=== PATIENT | male | born 1950 | race Caucasian/White ===

== ENCOUNTER 2018-07-12 10:37 | Outpatient (CLI) | payer OTHER, SELFPAY ==
[2018-07-12 11:28] LABS: Abs Immature Grans 0.02 k/cumm (0.0-0.09); Absolute Basophil Count 0.04 k/cumm (0.0-0.2); Absolute Eosinophil Count 0.27 k/cumm (0.0-0.7); Absolute Lymphocyte Count 1.29 k/cumm (1.2-3.4); Absolute Monocyte Count 0.55 k/cumm (0.11-0.7); Absolute Neutrophil Count 3.16 k/cumm (1.2-6.7); Basophils % 0.8; Eosinophils % 5.1; HCT 49.9 % (40.0-50.0); HGB 16.6 g/dL (13.5-17.5); Immature Grans % 0.4; Lymphocytes % 24.2; Mean Corp. HGB Concentration 33.3 g/dL (32.0-36.0); Mean Corpuscular Hemoglobin 30.3 pg (27.0-33.0); Mean Corpuscular Volume 91.1 fL (80-95); Mean Platelet Volume 10.1 fL (8.0-11.0); Monocytes % 10.3; Neutrophils % 59.2; Platelet Count 205 x1000/uL (130-400); RBC 5.48 m/cumm (4.50-6.00); RBC Distribution Width 13.4 % (11.8-14.1); White Blood Cell Count 5.33 k/cumm (4.4-10.8)
[2018-07-12 12:24] LABS: ALT 26 U/L (12-78); AST 20 U/L (15-37); Albumin 3.9 g/dL (3.4-5.0); Alkaline Phosphatase 68 U/L (46-116); Anion Gap 7.1 mmol/L (3-11); BUN 23 mg/dL (7-18); Bilirubin, Total 0.7 mg/dL (0.2-1.0); CO2 30.9 mmol/L (21.0-32.0); CREATININE 0.99 mg/dL (0.70-1.30); Calcium 9.1 mg/dL (8.5-10.1); Chloride 104 mmol/L (98-107); Glucose 103 mg/dL (70-100); Potassium 4.3 mmol/L (3.5-5.1); Sodium 142 mmol/L (136-145); TSH (W/Ref FT4) 2.11 uIU/mL (0.358-3.74); Total Protein 7.6 g/dL (6.4-8.2)
[2018-07-12 12:47] LABS: Lipase 243 U/L (73-393)
[2018-07-13 10:37] LABS: Hepatitis C Ab w Rflx HCV PCR Negative (NEGAT)
== END 2018-07-12 10:57 ==
PROVIDERS: PCP Family Medicine; Visit Provider Family Medicine
DX: R10.9 Unspecified abdominal pain (principal); R53.83 Other fatigue; Z11.59 Encounter for screening for other viral diseases
CPT/HCPCS: 36415; 80053; 83690; 86803; 84443; 85025

== ENCOUNTER 2018-07-18 01:11 | Outpatient (CLI) | payer OTHER, SELFPAY ==
--- NOTE | 2018-07-18 07:20 | DI.US_ITS ---
SYMPTOM/DIAGNOSIS: RUQ PAIN WITH NAUSEA, R10.9 ABDOMEN ULTRASOUND: The aorta and vena cava are intact. The liver is intact and is not enlarged. The gallbladder is normal. There are no gallstones or ductal dilatation. There is only limited visualization of the pancreas. The spleen is top limits of normal in size to mildly enlarged at 10.5 cm. The kidneys are unremarkable. The right kidney measures 10.1 by 5.5 by 5.4 cm., the left kidney measures 10.2 by 5.5 by 5.8 cm. There is no evidence of abdominal free fluid. SUMMARY: The liver is not enlarged, however there is some increased echogenicity suggesting the possibility of fatty infiltration. The examination is otherwise unremarkable with note made of non visualization of the pancreas.
== END 2018-07-18 01:31 ==
PROVIDERS: PCP Family Medicine; Visit Provider Family Medicine
DX: R10.11 Right upper quadrant pain (principal); R11.0 Nausea; K76.0 Fatty (change of) liver, not elsewhere classified
CPT/HCPCS: 76700

== ENCOUNTER 2019-07-17 11:30 | Outpatient (CLI) | payer OTHER, SELFPAY ==
[2019-07-18 15:45] LABS: ANA Interpretation Negative (Negative)
[2019-07-19 15:03] LABS: Smooth Muscle Ab Screen Negative (Negative)
== END 2019-07-17 11:50 ==
PROVIDERS: PCP Family Medicine; Visit Provider Family Medicine
DX: K76.0 Fatty (change of) liver, not elsewhere classified (principal)
CPT/HCPCS: 36415; 86038; 86255

== ENCOUNTER 2020-08-08 15:57 | Emergency (ER) | payer OTHER, SELFPAY ==
--- NOTE | 2020-08-08 16:00 | DI.RAD_ITS ---
EXAM: XR LUMBAR SPINE COMPLETE CLINICAL HISTORY: Left side sciatica pain. TECHNIQUE: 2D digital imaging was performed. COMPARISON: No exams were available for comparison FINDINGS: BONES: No fracture or destructive lesion. Vertebral bodies are maintained in height.. Moderate facet hypertrophy identified. DISKS: Endplate osteophytes and mild disc space narrowing. ALIGNMENT: Lumbar spinal alignment is within normal limits. SOFT TISSUE: Mild aortic calcification. IMPRESSION: Degenerative changes. No acute abnormality. DATA REPOSITORY: RADIATION DOSE DELIVERED:
[2020-08-08 16:03] VITALS: BP 146/95; PULSE 104; RESP 16; TEMP 36.4; O2SAT 95
--- NOTE | 2020-08-08 16:16 | ED.GENADUL_ITS ---
Discharge Plan Disposition Patient Disposition: HOME Condition: Stable Discharge Details Clinical Impression: Lumbago with sciatica, left side Primary Care Provider: Shiv Aceves ED Provider: Harper Boone Home Meds and New Rx's Prescriptions: New gabapentin 300 mg capsule 300 mg PO QHS PRN (Reason: pain, moderate) Qty: 10 RF: 0 lidocaine 5 % adhesive patch,medicated 1 patch topical DAILY PRN (Reason: pain) Qty: 15 RF: 0 Continued methylprednisolone [Medrol (Anshul)] 4 mg tablets,dose pack See Rx Instructions PO PER PKG DIR Qty: 21 RF: 0 cyclobenzaprine 10 mg tablet 10 mg PO HS PRN (Reason: muscle spasm) Qty: 10 RF: 0 esomeprazole magnesium [Nexium] 40 MG capsule,delayed release(DR/EC) 40 mg PO every other day RF: 0 Motrin PM 1 EACH tablet 2 ea PO HS RF: 0 Discharge Instructions Instructions: Sciatica (ED), Lower Back Exercises (ED) Additional Instructions: Follow up with primary care provider in 3-5 days. Return to ED sooner if any worsening or concerns. Increase oral fluids. Please take Tylenol or Ibuprofen with food every 4-6 hours as needed for pain and swelling. Take medications as directed. A physical therapy referral was placed for you they should contact you for an appointment. Alternate ice and heat. Attempt exercises as noted in instructions. Please return to the ED for any loss of bowel or bladder control, any numbness around your groin or rectum, inability to urinate or have a bowel movement, fever vomiting, or any worsening or concerns. Stand Alone Forms: Physical Therapy Referral Referrals: Shiv Aceves DO [Primary Care Provider] - Medical Decision Making male presents to the ED with chief complaint of left lower lumbar pain with r adiation into left anterior thigh down to knee. 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 He has been seen x 2 and is on prednisone and Flexeril which he took prior to arrival. He denies any loss of bowel or bladder control, no saddle anesthesia, no problems urinating, or constipation. He has a past medical history of diverticulosis. X-ray lumbar spine ordered, urinalysis, will give patient 5 mg Valium p.o. and 50 mg of tramadol. XR of the lumbosacral spine, 4 or 5 views. COMPARISON: No relevant prior studies available. FINDINGS: Bones/joints: Mild multilevel spondylosis. No acute fracture. Normal alignment. Soft tissues: Unremarkable. IMPRESSION: No evidence for acute abnormality. 1731: Patient reevaluation, he has received Valium and tramadol he states that he is still having some pain. Discussed the x-ray results with patient who verbalized understanding. At this time urinalysis is pending, due to absence of symptoms I do feel it is appropriate to discharge patient before receiving urinalysis. Patient was given lidocaine patch, gabapentin 300 mg instructed to take at bedtime, was given Percocet prior to discharge. 2136: Reviewed urinalysis results shows trace leukocytes, 10-20 WBCs, no nitrites, culture is pending at this time. HPI General Mode of arrival: wheelchair . Date/Time Provider Initiated Documentation: 08/08/20 16:08 . Limitations to Documentation: no limitations . Information obtained by: patient . HPI Narrative: 70 year old male presents to the ED with chief complaint of left lower lumbar pain with radiation into left anterior thigh down to knee. 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 He has been seen x 2 and is on prednisone and Flexeril which he took prior to arrival. He denies any loss of bowel or bladder control, no saddle anesthesia, no problems urinating, or constipation. He has a past medical history of diverticulosis. Related Data Home Medications Medication Instructions Recorded Confirmed Motrin PM 2 ea PO HS 02/12/18 08/08/20 esomeprazole magnesium [Nexium] 40 mg PO every other day 02/12/18 08/08/20 cyclobenzaprine 10 mg tablet 10 mg PO HS PRN #10 tab 08/05/20 08/08/20 methylprednisolone 4 mg tablets in See Rx Instructions PO PER PKG DIR 08/05/20 08/08/20 a dose pack #21 dose pk gabapentin 300 mg PO QHS PRN #10 cap 08/08/20 lidocaine 1 patch TOPICAL DAILY PRN #15 ea 08/08/20 Previous Rx's Medication Instructions Recorded cyclobenzaprine 10 mg tablet 10 mg PO HS PRN #10 tab 08/05/20 methylprednisolone 4 mg tablets in See Rx Instructions PO PER PKG DIR 08/05/20 a dose pack #21 dose pk gabapentin 300 mg PO QHS PRN #10 cap 08/08/20 lidocaine 1 patch TOPICAL DAILY PRN #15 ea 08/08/20 Allergies Allergy/AdvReac Type Severity Reaction Status Date / Time cat dander Allergy Unknown unknown Verified 08/08/20 16:07 mold Allergy Verified 08/08/20 16:07 No Known Drug Allergies Allergy Verified 08/08/20 16:07 General Stated Complaint: Nk/Back Pain MERLE: 3 Review of Systems Narrative: Constitutional: Negative for weight loss, alert and oriented, well groomed, normal body habitus, appears comfortable. HEENT: Denies trauma, headaches, blurry vision, nasal discharge, sore throat, trouble swallowing. Chest: Denies chest pain, palpitations, irregular rhythm, hypertension. Respiratory: Denies Shortness of breath, cough, hemoptysis. GI: Denies abdominal pain, nausea, vomiting, diarrhea, constipation. : Denies dysuria, hematuria, flank pain, rectal bleeding. Musculoskeletal: Planing of left lower lumbar tenderness with radiation down into his left anterior thigh and knee. Neuro: Denies dizziness, blurry vision, weakness, syncope, headache or facial numbness. Hematologic: Denies easy bruising, intolerance to heat or cold, hair loss. [facility] Medical History Sigmoid diverticulosis (01/30/18) Surgical History cyst removal Family History Mother No problems noted. Father No problems noted. Brother Alcohol abuse Brother No problems noted. Brother No problems noted. Brother No problems noted. Son No problems noted. Son No problems noted. Daughter No problems noted. 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 Appears stated age. Normal body habitus. Head: Normocephalic, no trauma. Eyes: Pupils PERRLA, Red reflex noted, EOM's intact. Eyelids symmetrical without lesions, discharge, or swelling. ENT: Bilateral TM's WNL, External ear normal to inspection, no mastoid TTP, swelling, or erythema, Nasal turbinates WNL, no nasal discharge. Normal dentition, Posterior pharynx WNL, no exudate. Chest: RRR, Normal S1, S2, distal pulses intact. Resp: Lungs clear to auscultation bilaterally, no wheezes, rales, or rhonchi. Musculoskeletal: 5/5 strength to all four extremities. Skin: No suspicious rashes or lesions. Capillary refill less than 2 sec. Neurologic: Cranial nerves II-XII intact. Alert and oriented x 3. DTR's intact. Hematologic/Lymphatic: No ecchymosis, no lymphadenopathy. Course Vital Signs Vital signs: Vital Signs Temperature 36.4 C L 08/08/20 16:03 Pulse 104 H 08/08/20 16:03 Respiratory Rate 16 08/08/20 16:03 Blood Pressure 146/95 H 08/08/20 16:03 Pulse Oximetry 95 08/08/20 16:03 Temperature 36.4 C L 08/08/20 16:03 Temperature Source Skin 08/08/20 16:03 Pulse 104 H 08/08/20 16:03 Respiratory Rate 16 08/08/20 16:03 Respiratory Effort Non-Labored 08/08/20 16:03 Blood Pressure 146/95 H 08/08/20 16:03 Blood Pressure Position Sitting 08/08/20 16:03 Pulse Oximetry 95 08/08/20 16:03 Oxygen Delivery Method Room Air 08/08/20 16:03 Oxygen Flow Rate 0 08/08/20 16:03 Pain Level 9 08/08/20 16:03
[2020-08-08] MEDS: diazePAM 5 MG TAB PO (16:22)
[2020-08-08] MEDS: traMADol 50 MG TAB PO (16:22)
--- NOTE | 2020-08-08 16:39 | DI.VRAD_ITS ---
PROCEDURE INFORMATION: Exam: XR Lumbosacral Spine, 4 or 5 Views Exam date and time: 08/08/2020 4:16 PM Age: 70 years old Clinical indication: Pain; Sciatica TECHNIQUE: Imaging protocol: XR of the lumbosacral spine, 4 or 5 views. COMPARISON: No relevant prior studies available. FINDINGS: Bones/joints: Mild multilevel spondylosis. No acute fracture. Normal alignment. Soft tissues: Unremarkable. IMPRESSION: No evidence for acute abnormality. Dictated and Authenticated by: Leslie Cyone MD. Ordering:LEAH Saleem MD
[2020-08-08] MEDS: Lidocaine 5% Patch 1 PATCH TP (17:43)
[2020-08-08] MEDS: Gabapentin 300 MG CAP PO (17:43)
[2020-08-08 18:21] VITALS: BP 154/94; PULSE 104; RESP 20; O2SAT 100
[2020-08-08 18:23] LABS: Bilirubin Negative (Negative); Blood Negative (Negative); Clarity Cloudy (Clear); Glucose Negative (Negative); Ketones Negative (Negative); Leukocyte Esterase Trace (Negative); Nitrite Negative (Negative); Specific Gravity 1.025 (1.005-1.025); Urobilinogen 0.2 EU/dL (Up TO 0.2); pH 6.5 (5-8)
[2020-08-08 18:32] LABS: Bacteria Many HPF (Negative); C & S Indicated? Yes; Casts Negative LPF (Negative); Crystals Negative HPF (Negative); Epithelial Cells Rare HPF (Negative); Mucus Negative (Negative); RBC 0-2 HPF (0-2)
[2020-08-08] MEDS: oxyCODONE 5 mg/Acetaminophen 325 mg TAB 1 TAB PO ×2 (18:32→18:33)
== END 2020-08-08 18:40 | disposition home or self-care (01) ==
PROVIDERS: Emergency Provider Registered Nurse Emergency; PCP Family Medicine
DX: M54.42 Lumbago with sciatica, left side (principal); M62.830 Muscle spasm of back
CPT/HCPCS: 87077; 99283; 72110; 81003; 81015; 87086; 87186

== ENCOUNTER 2020-08-27 01:27 | Outpatient (CLI) | payer OTHER, SELFPAY ==
--- NOTE | 2020-08-27 06:45 | DI.MRI_ITS ---
EXAM: MR LUMBAR SPINE WO CLINICAL HISTORY: Suspect L3-4 disc bulge,LUMBAR BACK PAIN WITH RADICULOPATHY,M54.16. TECHNIQUE: Multiplanar multisequence MRI of the Lumbar spine was performed. COMPARISON: CR,XR XR LUMBAR SPINE COMPLETE from 08/08/2020 FINDINGS: Plain films 08/08/2020 reviewed Conus medullaris is at normal level. There is no evidence of conus mass nor subjacent clumping of in trathecal nerve roots to suggest arachnoiditis. The distal thecal sac appears unremarkable.There is no evidence of Tarlov intrasacral cysts nor other significant findings within the sacral canal Bones:There are no fractures nor ominous osseous lesions in the lumbar vertebral bodies and visualize d sacrum. With respect to the individual levels... T12-L1: Unremarkable L1-2: Mild decreased disc height and signal. There are anterior osteophytes.Posteriorly there is bro ad annular bulging without a dominant disc herniation although the annular bulging does extend apprec iably into the exiting left neural foramen. However, the absence of significant disc height loss steward s not result in significant foraminal stenosis. There is no central canal stenosis. There is also n o significant facet arthropathy at this level. L2-3: Normal disc height. There is broad annular bulging with a superimposed central-left paracentral disc protrusion which extends posteriorly 3-4 millimeters and is 9 millimeters wide. This indents t he anterior left side of the thecal sac. Also annular bulging extends into the exiting left neural f oramen at this level contacting the exiting nerve root with mild left-sided foraminal stenosis. Ther e is no foraminal stenosis on the opposite-right side. Osseous central canal dimensions are lower no rmal. There is no significant facet arthropathy. L3-4: Preserved disc height . There is broad annular bulging at this level with relatively symmetric al extension into the exiting neural foramina bilaterally and even more so laterally on the right kendrick e where there is a element of lateral disc protrusion. There is mild central canal stenosis due to t he broad annular bulging which flattens the anterior aspect of the thecal sac, short AP dimensions th e pedicles. There is no prominent facet arthropathy nor ligamentum flavum hypertrophy.Although the a nnulus bulges into the exiting neural foramina bilaterally, there is minimal foraminal stenosis. L4-5: Preserved disc height. There is broad annular bulging with a superimposed central subligamento us disc protrusion which flattens the anterior aspect of the thecal sac. There is also some resultin g mild-moderate central spinal canal stenosis due to this annular bulging and disc protrusion. There is no prominent extension of the annular bulging into the exiting neural foramina with out significa nt foraminal stenosis on either side at this level. Mild degenerative changes in the facet joints. No prominent ligamentum flavum hypertrophy. L5-S1: Preserved disc height. Diffuse annular bulging, but without flattening of the thecal sac at t his level. Central canal dimensions are lower normal. Some extension of annular bulging into the fl oor of the exiting left neural foramen but without prominent foraminal stenosis on either side at thi s level. Mild degenerative facet joint changes. Soft tissues: paraspinal soft tissues appear unremarkable. IMPRESSION: 1. Although there is relatively preserved disc height throughout the lumbosacral spine, there are mul tilevel disc findings at each level as described individually above, including annular bulging and broussard perimposed disc protrusions as described individually above. At the L4-5 level there is mild-moderat e central canal stenosis and there is mild central canal stenosis at L3-4 level. 2. Although there is annular bulging extending into the exiting neural foramina at multiple levels, t here is no prominent foraminal stenosis. This lack of prominent foraminal stenosis is due to disc he ight preservation and absence of prominent degenerative facet joint changes. 3. No osseous lesions evident. DATA REPOSITORY:
== END 2020-08-27 01:47 ==
PROVIDERS: PCP Family Medicine; Visit Provider Family Medicine
DX: M48.061 Spinal stenosis, lumbar region without neurogenic claudication (principal); M54.16 Radiculopathy, lumbar region
CPT/HCPCS: 72148

== ENCOUNTER 2020-12-22 14:59 | Observation (INO) | payer OTHER, SELFPAY ==
[2020-12-22] VITALS (37 sets, daily range): BP systolic 78–154; BP diastolic 42–97; PULSE 106–156; RESP 11–27; TEMP 36.4–37.4; O2SAT 86–97; BMI 26.4
[2020-12-22] MEDS: Normal Saline Flush 10 ML SYR IVP ×2 (15:10→20:09)
--- NOTE | 2020-12-22 15:12 | DI.CT_ITS ---
Exam(s) CT ABDOMEN PELVIS W EXAM: CT ABDOMEN PELVIS W CLINICAL HISTORY: Hx Divertic. Pain RLQ, nausea. IV, no PO. TECHNIQUE: Imaging Protocol: Axial computed tomography images with coronal and sagittal reformatted images were created and reviewed CONTRAST MATERIAL: Intravenous: Omnipaque 100cc Oral: None COMPARISON: No exams were available for comparison FINDINGS: VISUALIZED LUNG BASES: Increased dependent markings both lung bases. No pleural effusions. ABDOMEN: There is no ascites. LIVER: There are no focal hepatic lesions evident . GALLBLADDER/BILIARY: No obvious gallbladder pathology. CBD is not dilated. PANCREAS: No evidence of pancreatic mass nor dilatation of the pancreatic duct. SPLEEN: Spleen is not enlarged. No obvious intrasplenic lesions. Splenic and portal veins are paten t. ADRENALS: There are no significant adrenal masses. KIDNEYS:No cysts evident. No solid renal masses. No calculi nor hydronephrosis.. ABDOMINAL AORTA: Mild prominence of the diameter of the inferior abdominal aorta and proximal left co mmon iliac artery. LYMPH NODES:There is no retroperitineal nor paraaortic adenopathy. ABDOMINAL WALL: No evidence of significant anterior abdominal wall hernia. PELVIS: GI: The appendix is abnormal. It is swollen to diameter of 12 millimeters and edematous and with ean rounding streaking in the mesoappendix. Consistent with acute appendicitis. No abscess. No free ai r.There is extensive sigmoid diverticulosis without evidence of acute diverticulitis. LYMPH NODES: Slightly enlarged lymph nodes in the mesoappendix noted. No other adenopathy evident. REPRODUCTIVE: Prostate slightly enlarged. URINARY BLADDER: No calculi nor obvious masses evident OSSEOUS: No significant osseous lesions. IMPRESSION: 1. Findings are consistent with acute appendicitis, as described above. 2. There is sigmoid diverticulosis but no evidence of acute diverticulitis. Findings called by myself to and [facility] emergency room physician RADIATION DOSE DELIVERED: 781.18mGy.cm Total DLP DATA REPOSITORY: All CT scans at this facility are submitted to the National Radiology Data Registry (NRDR) Dose Index Registry (DIR) with the [employer] (ACR). RADIATION OPTIMIZATION: All CT scans at this facility use at least one of these dose optimization te chniques: automated exposure control; mA and/or kV adjustment per patient size (includes targeted exa ms where dose is matched to clinical indication); or iterative reconstruction.
--- NOTE | 2020-12-22 15:15 | RT.EKG_ITS ---
APPROVED REPORT Exam: Resting ECG Reason for Exam: abd pain Patient Location: E HR:125 bpm ECG Measurements Heart Rate 125 AXIS AK 127 P 21 QRSd 139 QRS -142 QT 335 T 50 QTc 484 Conclusion Sinus tachycardia...rate> 99 Right bundle branch block.. Nonspecific st changes
--- NOTE | 2020-12-22 15:19 | W.ED.GENAD ---
Discharge Plan Disposition Patient Disposition: [facility] INPATIENT Condition: Stable Discharge Details Chief Complaint: Abd Prob Clinical Impression: Acute appendicitis Primary Care Provider: Shiv Aceves ED Provider: Amos Yung Home Meds and New Rx's Prescriptions: No Action oxycodone-acetaminophen [Percocet] 5-325 mg tablet 1 tab PO QHS MDD 5 mg oxycodone PRN (Reason: pain) Qty: 14 RF: 0 gabapentin 600 mg tablet 600 mg PO TID Qty: 270 RF: 3 meloxicam 15 mg tablet 15 mg PO DAILY PRN (Reason: pain) 30 Days Qty: 30 RF: 5 esomeprazole magnesium [Nexium] 40 MG capsule,delayed release(DR/EC) 40 mg PO every other day RF: 0 Motrin PM 1 EACH tablet 2 ea PO HS RF: 0 lidocaine 5 % adhesive patch,medicated 1 patch topical DAILY PRN (Reason: pain) Qty: 15 RF: 0 Medical Decision Making This is a 70-year-old male who presents with hours of right lower quadrant abdominal pain was insidious in onset, now constant. Associated with nausea, decreased appetite and a mild headache. No vomiting or chest pain. States she has had 1 out of 2 Covid vaccinations. Has a history of gallstones, no significant abdominal surgeries. He was initially seen at local urgent care and referred expeditiously to the emergency department. Arrives with a pulse of 128, new shaking chills. Temp is 37.4, blood pressure 154/89. He is tender in the right lower quadrant. He has a history of diverticulitis. Differential diagnosis would include appendicitis, diverticulitis, cholecystitis. As the patient had tachycardia and a rigor on presentation, blood cultures were obtained and I ordered Zosyn empirically to cover for developing peritonitis. Screening EKG, laboratories, urinalysis obtained patient referred for CT images. Labs will note a left shift to white blood cell count of 8. Slightly elevated lactic acid. Negative troponin. CT with evidence of acute appendicitis. Formal read is pending. Case discussed with Dr. Disla and patient to be admitted. HPI General Mode of arrival: ambulatory. Date/Time Provider Initiated Documentation: 12/22/20 15:02. Limitations to Documentation: no limitations. Information obtained by: patient. History of Present Illness 70 year old M presents to the emergency department with the chief complaint of Right lower abdominal pain since 4 AM, described as moderate, Quality is described as dull and constant, and is localized to the abdomen and right. Patient abdomen. Patient started experiencing this hour(s) and it has been constant. Rest improves symptom(s), Movement worsens symptoms . Patient notes fever/chills, headaches, loss of appetite and other (Nauseated); denies chest pain, shortness of breath and syncope. Patient did receive the following treatments prior to arrival, other (Reports 1 of 2 COVID-19 vaccines) Related Data Home Medications Medication Instructions Recorded Confirmed Motrin PM 2 ea PO HS 02/12/18 12/22/20 esomeprazole magnesium [Nexium] 40 mg PO every other day 02/12/18 12/22/20 lidocaine 1 patch TOPICAL DAILY PRN #15 ea 08/08/20 12/22/20 gabapentin 600 mg tablet 600 mg PO TID #270 tab 09/01/20 12/22/20 oxycodone-acetaminophen 5 mg-325 1 tab PO QHS PRN #14 tab MDD 5 mg 09/01/20 12/22/20 mg tablet oxycodone meloxicam 15 mg tablet 15 mg PO DAILY PRN 30 Days #30 tab 09/22/20 12/22/20 Previous Rx's Medication Instructions Recorded lidocaine 1 patch TOPICAL DAILY PRN #15 ea 08/08/20 gabapentin 600 mg tablet 600 mg PO TID #270 tab 09/01/20 oxycodone-acetaminophen 5 mg-325 1 tab PO QHS PRN #14 tab MDD 5 mg 09/01/20 mg tablet oxycodone meloxicam 15 mg tablet 15 mg PO DAILY PRN 30 Days #30 tab 09/22/20 Allergies Allergy/AdvReac Type Severity Reaction Status Date / Time cat dander Allergy Unknown unknown Verified 12/22/20 15:11 mold Allergy Verified 12/22/20 15:11 No Known Drug Allergies Allergy Verified 12/22/20 15:11 General Stated Complaint: Abd Prob MERLE: 2 Review of Systems Narrative: Shaking chill, nauseated, no vomiting, denies chest pain or shortness of breath. No recent illness. Last bowel movement yesterday. 8 systems reviewed and otherwise negative. See [facility] Medical History (Updated 12/22/20 @ 17:23 by Amos Yung MD) Hepatic steatosis Lumbar back pain with radiculopathy affecting left lower extremity Sigmoid diverticulosis (01/30/18) Surgical History cyst removal Family History Mother No problems noted. Father No problems noted. Brother Alcohol abuse Brother No problems noted. Brother No problems noted. Brother No problems noted. Son No problems noted. Son No problems noted. Daughter No problems noted. 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 Pleasant, well groomed, interactive. HEAD: Normocephalic, atraumatic ENT: Mucous membranes moist, oropharynx unremarkable, External ear exam unremarkable EYES: PERRL, EOMI NECK: Full ROM, no KACY, no menigismus CHEST/RESP: Nontender, clear to auscultation bilateral, no wheeze/rhonchi/rales CARDIOVASCULAR: Regular and tachycardic, no murmur, rub dave. 2+ Rad pulse bilateral ABDOMEN: Soft, tender right lower quadrant, mild rebound, diminished bowel sounds, no mass. EXT: Full ROM, no edema, no rash Neuro: Grossly normal neurologic exam, conversant, interactive. Psych: Speech fluent, thoughts congruent, affect normal Course Vital Signs Vital signs: Vital Signs Temperature 37.4 C 12/22/20 15:05 Pulse 128 H 12/22/20 15:05 Respiratory Rate 20 12/22/20 15:05 Blood Pressure 154/89 H 12/22/20 15:05 Pulse Oximetry 94 12/22/20 15:05 Temperature 37.4 C 12/22/20 15:05 Temperature Source Oral 12/22/20 15:05 Pulse 128 H 12/22/20 15:05 Respiratory Rate 20 12/22/20 15:05 Respiratory Effort Non-Labored 12/22/20 15:10 Blood Pressure 154/89 H 12/22/20 15:05 Blood Pressure Position Supine 12/22/20 15:05 Pulse Oximetry 94 12/22/20 15:05 Oxygen Delivery Method Room Air 12/22/20 15:05 Oxygen Flow Rate 0 12/22/20 15:05 Pain Level 8 12/22/20 15:05
[2020-12-22] MEDS: Normal Saline 1,000 ML 1000 ML IV ×2 (15:25→16:35)
[2020-12-22] MEDS: Ondansetron 4 MG/2 ML VIAL IVP (15:25)
[2020-12-22] MEDS: HYDROmorphone 2 MG/ML VIAL 1 MG IVP (15:30)
[2020-12-22 15:32] LABS: Abs Immature Grans 0.02 10^3/uL (0.0-0.06); Absolute Basophil Count 0.05 10^3/uL (0.0-0.2); Absolute Eosinophil Count 0.03 10^3/uL (0.0-0.7); Absolute Lymphocyte Count 0.24 10^3/uL (1.2-3.4); Absolute Monocyte Count 0.05 10^3/uL (0.1-0.8); Absolute Neutrophil Count 7.73 10^3/uL (1.2-6.7); Basophils % 0.6; Eosinophils % 0.4; HCT 50.7 % (40.0-50.0); HGB 17.5 g/dL (13.5-17.5); Immature Grans % 0.2; MCH 30.8 pg (27.0-33.0); MCHC 34.5 % (32.0-36.0); MCV 89.1 fL (80-95); MPV 9.9 fL (8.0-11.0); Monocytes % 0.6; Neutrophils % 95.2; Nucleated RBC 0 %; Platelet Count 159 10^3/uL (130-400); RBC 5.69 10^6/uL (4.36-5.78); RDW 11.9 % (11.8-14.1); RDW-SD 38.8 fL; WBC 8.12 10^3/uL (4.4-10.8)
[2020-12-22] MEDS: PIPERACILLIN/TAZO 3.375 GM in Normal Saline 50 ML IVPB (15:35)
[2020-12-22 15:37] LABS: Lactate 2.3 mmol/L (0.6-1.4)
[2020-12-22 15:50] LABS: ALT 24 U/L (16-63); AST 16 U/L (15-37); Albumin 4.3 g/dL (3.4-5.0); Alkaline Phosphatase 86 U/L (46-116); Anion Gap 12.6 mmol/L (3-11); BUN 23 mg/dL (7-18); Bilirubin, Total 1.1 mg/dL (0.2-1.0); CO2 25.4 mmol/L (21.0-32.0); Calcium 9.1 mg/dL (8.5-10.1); Chloride 103 mmol/L (98-107); Glucose 142 mg/dL (74-106); Lipase 69 U/L (73-393); Magnesium 1.4 mg/dL (1.8-2.4); Potassium 3.7 mmol/L (3.5-5.1); Sodium 141 mmol/L (136-145)
[2020-12-22 15:54] LABS: Troponin I < 0.05 ng/mL (<0.06)
[2020-12-22] MEDS: Omnipaque 350 MG/ML 100 ML BTL IJ (16:01)
[2020-12-22] MEDS: Normal Saline - Diluent 50 ML VIAL IV (16:02)
--- NOTE | 2020-12-22 16:45 | HPE_ITS ---
Date of service: 12/22/20 Time of Service: 16:45 Assessment and Plan Assessment and plan (1) Acute appendicitis: Status: Acute Assessment and plan: Mr. Russo is a pleasant 70 year old male who comes in to the ER with abdominal pain since 4 am this morning. It is localized to the RLQ. He doesn't have rebound tenderness. His WBC count is normal but he does have a slight left shift. CT scan reveals a dilated appendix. No fat stranding. Qualifiers: Acute appendicitis type: with localized peritonitis Appendicitis abscess presence: without abscess Appendicitis gangrene presence: without gangrene Appendicitis perforation presence: without perforation Qualified Code(s): K35.30 - Acute appendicitis with localized peritonitis, without perforation or gangrene History of Present Illness History of Present Illness Chief Complaint: RLQ abdominal pain Consults Consult date: 12/22/20 Requesting physician: Amos Yung Narrative: Mr. Russo is a 70-year-old male who presented with right lower quadrant abdominal pain since 4 am. The pain was insidious in onset, now constant.? Associated with nausea, decreased appetite and a mild headache.? No vomiting or chest pain.? States he has had 1 out of 2 Covid vaccinations.? Has a history of gallstones, no significant abdominal surgeries.? Arrived with a pulse of 128 and shaking chills.? Temp was 37.4, blood pressure 154/89.? He was given 2 L of Fluid and labs were drawn. Labs show a normal WBC count but he does have a left shift. CT scan was obtained which shows a dilated appendix. I can't appreciate any fat stranding. There is no official read yet. Review of Systems Constitutional Constitutional: Reports anorexia, Denies fever(s), Reports headache(s) and Denies weight loss Eyes Eyes: Denies change in vision ENT Ears, Nose, Mouth, and Throat: Denies dysphagia, Reports headache(s) and Denies hoarseness Cardiovascular Cardiovascular: Denies chest pain, Denies palpitations and Denies dyspnea Respiratory Respiratory: Denies cough and Denies dyspnea Gastrointestinal Gastrointestinal: Reports as per HPI and Denies dysphagia Genitourinary Genitourinary: Reports system reviewed and no additional complaints, except as documented Musculoskeletal Musculoskeletal: Reports system reviewed and no additional complaints, except as documented Integumentary/Breasts Skin/Breast: Reports system reviewed and no additional complaints, except as documented Neurologic Neurologic: Reports system reviewed and no additional complaints, except as documented and Reports headache(s) Psychiatric Psychiatric: Reports system reviewed and no additional complaints, except as documented Endocrine Endocrine: Denies palpitations [facility] Medical History (Updated 12/22/20 @ 17:23 by Amos Yung MD) Hepatic steatosis Lumbar back pain with radiculopathy affecting left lower extremity Sigmoid diverticulosis (01/30/18) Surgical History cyst removal Family History Mother No problems noted. Father No problems noted. Brother Alcohol abuse Brother No problems noted. Brother No problems noted. Brother No problems noted. Son No problems noted. Son No problems noted. Daughter No problems noted. 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[employer]) What type of physical activity do you participate in: none Working smoke detector in home: Yes Carbon monox detector in home: Yes Do you feel safe at home: Yes Do you feel safe in your relationship?: Yes Meds Allergies and Home Medications Allergies Allergy/AdvReac Type Severity Reaction Status Date / Time cat dander Allergy Unknown unknown Verified 12/22/20 15:11 mold Allergy Verified 12/22/20 15:11 No Known Drug Allergies Allergy Verified 12/22/20 15:11 Home Medications Medication Instructions Recorded Confirmed Type Motrin PM 2 ea PO HS 02/12/18 12/22/20 History esomeprazole magnesium [Nexium] 40 mg PO every other day 02/12/18 12/22/20 History lidocaine 1 patch TOPICAL DAILY PRN #15 ea 08/08/20 12/22/20 Rx gabapentin 600 mg tablet 600 mg PO TID #270 tab 09/01/20 12/22/20 Rx oxycodone-acetaminophen 5 mg-325 1 tab PO QHS PRN #14 tab MDD 5 mg 09/01/20 12/22/20 Rx mg tablet oxycodone meloxicam 15 mg tablet 15 mg PO DAILY PRN 30 Days #30 tab 09/22/20 12/22/20 Rx Exam Const General: cooperative, comfortable and no acute distress Orientation: alert and oriented x3 HENMT Head: normocephalic and atraumatic Resp Effort & Inspection: normal respiratory effort Auscultation: clear to auscultation bilaterally Cardio Rate: regular rate Rhythm: regular rhythm Heart Sounds: no gallops, no murmurs and no rubs GI Inspection: normal to inspection Palpation: soft, no hepatosplenomegaly and tender in the RLQ Auscultation: normal bowel sounds Rectal Exam: deferred Results Labs Result diagrams: 12/22/20 15:24 12/22/20 15:24 Labs: Laboratory Results - last 24 hr 12/22/20 12/22/20 12/22/20 15:24 15:24 15:24 WBC 8.12 RBC 5.69 Hgb 17.5 Hct 50.7 H MCV 89.1 MCH 30.8 MCHC 34.5 RDW 11.9 Plt Count 159 MPV 9.9 Immature Gran % 0.2 Neutrophils % 95.2 Lymphocytes % 3.0 Monocytes % 0.6 Eosinophils % 0.4 Basophils % 0.6 Nucleated RBC % 0 Absolute Neutrophils 7.73 H Absolute Lymphocytes 0.24 L Absolute Monocytes 0.05 L Absolute Eosinophils 0.03 Absolute Basophils 0.05 VBG Lactate 2.3 H* Sodium 141 Potassium 3.7 Chloride 103 Carbon Dioxide 25.4 Anion Gap 12.6 H BUN 23 H Creatinine 1.0 Estimated GFR/1.73 m2 >= 60.00 Glucose 142 H Calcium 9.1 Magnesium 1.4 L Total Bilirubin 1.1 H AST 16 ALT 24 Alkaline Phosphatase 86 Troponin I Total Protein 8.0 Albumin 4.3 Lipase 69 COVID-19 Source 12/22/20 12/22/20 15:24 15:45 WBC RBC Hgb Hct MCV MCH MCHC RDW Plt Count MPV Immature Gran % Neutrophils % Lymphocytes % Monocytes % Eosinophils % Basophils % Nucleated RBC % Absolute Neutrophils Absolute Lymphocytes Absolute Monocytes Absolute Eosinophils Absolute Basophils VBG Lactate Sodium Potassium Chloride Carbon Dioxide Anion Gap BUN Creatinine Estimated GFR/1.73 m2 Glucose Calcium Magnesium Total Bilirubin AST ALT Alkaline Phosphatase Troponin I < 0.05 Total Protein Albumin Lipase COVID-19 Source Nasopharyx Last Vital Signs Temp 99.3 F 05/25/21 15:05 Pulse 128 H 12/22/20 15:05 Resp 20 12/22/20 15:05 BP 154/89 H 12/22/20 15:05 Pulse Ox 94 12/22/20 15:05
[2020-12-22 16:58] LABS: Bilirubin Negative (Negative); Blood Moderate (Negative); Clarity Clear (Clear); Glucose Negative (Negative); Ketones 15 mg/dL (Negative); Leukocyte Esterase Trace (Negative); Nitrite Positive (Negative); Urobilinogen 0.2 EU/dL (Up TO 0.2)
[2020-12-22 16:59] LABS: COVID-19 PCR Negative (Negative)
[2020-12-22 17:06] LABS: Epithelial Cells Rare HPF (Negative)
[2020-12-22 17:07] LABS: Bacteria Rare HPF (Negative); C & S Indicated? Yes; Casts Negative LPF (Negative); Crystals Few Amorphous HPF (Negative); Mucus Negative (Negative)
--- NOTE | 2020-12-22 17:36 | W.ANESPRE ---
General Info Date of Service Date Performed: 12/22/20 Height: 5 ft 8 in Weight: 78.7 kg Body Mass Index (BMI): 26.4 Meds Allergies and Home Medications Allergies Allergy/AdvReac Type Severity Reaction Status Date / Time cat dander Allergy Unknown unknown Verified 12/22/20 15:11 mold Allergy Verified 12/22/20 15:11 No Known Drug Allergies Allergy Verified 12/22/20 15:11 Home Medication Medication Instructions Recorded Motrin PM 2 ea PO HS 02/12/18 esomeprazole magnesium [Nexium] 40 mg PO every other day 02/12/18 lidocaine 1 patch TOPICAL DAILY PRN #15 ea 08/08/20 gabapentin 600 mg tablet 600 mg PO TID #270 tab 09/01/20 oxycodone-acetaminophen 5 mg-325 1 tab PO QHS PRN #14 tab MDD 5 mg 09/01/20 mg tablet oxycodone meloxicam 15 mg tablet 15 mg PO DAILY PRN 30 Days #30 tab 09/22/20 Current Visit Medications: Current Medications Generic Name Dose Route Start Last Admin Trade Name Freq PRN Reason Stop Dose Admin IV Miscellaneous Supplies 1 each 12/22/20 15:15 Iv Access IV DIRECTED ARIS Iohexol 100 ml 12/22/20 16:15 12/22/20 16:01 Omnipaque 350 Mg/Ml 100 Ml Btl IJ 01/21/21 23:59 100 ml DIRECTED ARIS Administration Sodium Chloride 0 ml 12/22/20 15:12 Normal Saline Flush 10 Ml Syr IVP PRN PRN Sodium Chloride 50 ml 12/22/20 16:15 12/22/20 16:02 Normal Saline - Diluent 50 Ml Vial IV 50 ml .FOR DI USE ARIS Administration PFSH Active Problems Active Problems: Problem Status Onset Code Acute appendicitis K35.80 Sigmoid diverticulosis 01/30/18 K57.30 Medical History Medical History (Updated 12/22/20 @ 17:23 by Amos Yung MD) Hepatic steatosis Lumbar back pain with radiculopathy affecting left lower extremity Sigmoid diverticulosis (01/30/18) Surgical History Surgical History cyst removal Tobacco Smoking/Tobacco Use Status: Never Alcohol Alcohol Intake: current Alcohol intake frequency: 3 or more drinks per day Alcohol type: wine Substance Use Substance use type: does not use Vital Signs and Lab Results Vital Signs Most Recent Vital Signs in EMR: Most Recent Vital Signs Temp Pulse Resp BP Pulse Ox 37.4 C 120 H 14 142/81 H 95 12/22/20 15:05 12/22/20 17:16 12/22/20 17:20 12/22/20 17:16 12/22/20 17:20 Lab Results Result Diagrams: 12/22/20 15:12/22/20 15:24 Blood Type / Crossmatch: No Data to Display Complete Blood Count: White Blood Count 8.12 10^3/uL (4.4-10.8) 12/22/20 15:24 12/22/20 Red Blood Count 5.69 10^6/uL (4.36-5.78) 12/22/20 15:24 12/22/20 Hemoglobin 17.5 g/dL (13.5-17.5) 12/22/20 15:12/22/20 Hematocrit 50.7 % (40.0-50.0) H 12/22/20 15:12/22/20 Platelet Count 159 10^3/uL (130-400) 12/22/20 15:24 12/22/20 Complete Metabolic Panel: Sodium Level 141 mmol/L (136-145) 12/22/20 15:24 12/22/20 Potassium Level 3.7 mmol/L (3.5-5.1) 12/22/20 15:12/22/20 Chloride Level 103 mmol/L (98-107) 12/22/20 15:12/22/20 Carbon Dioxide Level 25.4 mmol/L (21.0-32.0) 12/22/20 15:12/22/20 Blood Urea Nitrogen 23 mg/dL (7-18) H 12/22/20 15:12/22/20 Creatinine 1.0 mg/dL (0.70-1.30) 12/22/20 15:12/22/20 Magnesium Level 1.4 mg/dL (1.8-2.4) L 12/22/20 15:24 12/22/20 Calcium Level 9.1 mg/dL (8.5-10.1) 12/22/20 15:12/22/20 Albumin 4.3 g/dL (3.4-5.0) 12/22/20 15:24 12/22/20 Glucose Level 142 mg/dL (74-106) H 12/22/20 15:24 12/22/20 Liver Function Panel: Alanine Aminotransferase (ALT/SGPT) 24 U/L (16-63) 12/22/20 15:24 12/22/20 Aspartate Amino Transf (AST/SGOT) 16 U/L (15-37) 12/22/20 15:24 12/22/20 Coagulation Panel: No Data to Display Cardiac Panel: Troponin I < 0.05 ng/mL (<0.06) 12/22/20 15:24 12/22/20 Arterial Blood Gas: No Data to Display Venous Blood Gas: Venous Blood Lactate 2.3 mmol/L (0.6-1.4) H* 12/22/20 15:24 12/22/20 Pancreas Panel: Lipase 69 U/L (73-393) 12/22/20 15:24 12/22/20 Thyroid Panel: No Data to Display Infectious Disease: Coronavirus (COVID-19)(PCR) Negative (Negative) 12/22/20 15:45 12/22/20 Coronavirus 2019 Source Nasopharyx 12/22/20 15:45 12/22/20 Blood Cultures: No Data to Display Toxicology Panel: No Data to Display Anesthesia Assessment and Plan Anesthesia History Personal History: No History of General Anesthesia Family History: No Family History of Anesthesia Complications Exercise Tolerance Exercise Tolerance: Metabolic Equivalents>4 Pertinent Negatives Pertinent Negatives: No Major Cardiovascular Symptoms or Complaints, No Major Pulmonary Symptoms or Complaints and No History of CVA/TIA Cardiac & Pulmonary Exam Cardiac Exam: Normal S1/S2 Heart Sounds Pulmonary Exam: Clear Bilateral Breath Sounds Airway Exam Known Difficult Airway: No Mallampati Class: 3 Mouth Opening: Normal (> 3cm) Thyromental Distance: Greater than 3 cm Neck Range of Motion: Full ROM Neck Circumference: Normal Teeth Condition: Normal Dentition Airway Comments: ?Multiple broken and missing teeth ? ASA Classification ASA Score: ASA 2 Emergency Case?: Yes NPO Status NPO Status: NPO Clears >2 hours, Solids >8 hours Anesthesia Plan Resuscitation Status: Full Code Anesthesia Technique: General Anesthesia Airway Planned: Endotracheal Tube Monitors Used: Standard Monitors
[2020-12-22] MEDS: Lactated Ringers 1,000 ML 150 ML IV ×2 (18:10→20:09)
--- NOTE | 2020-12-22 18:35 | APP_PTH ---
PATIENT: Jack Russo LOC: U#:[id number] AGE/SX: 70/M ROOM: 215 RE12/22/[address]: Bernadette Peters MD : 1950 BED: A DIS: 12/24/2020 SPEC #: [id number] RECD: 12/22/20 19:08 STATUS: NINOSKA REQ #: [id number] DONI: 12/22/20 18:[address]: Bernadette Peters DEPT: Surgical Specimen RECD BY: Tatiana Simeon ENTERED: 12/22/20 19:08 SP TYPE: Appendix OTHR DR: Shiv Aceves DO Tissues: 1 - APPENDIX NOT INCIDENTAL Procedures: GROSS AND MICRO LEVEL 3 Comments: [id number]
[2020-12-22] MEDS: Bupivacaine 0.25% Pres-Free 30 ML VIAL (18:44)
--- NOTE | 2020-12-22 18:57 | ROE_ITS ---
Date of service: 12/22/20 Time of Service: 18:57 Operative Note Operative Note DATE OF PROCEDURE: 12/22/20 PRE-OP DIAGNOSIS: Acute Appendicitis POST-OP DIAGNOSIS: same PROCEDURE: Laparoscopic Appendectomy SURGEON: Bernadette Peters PLANING MACHINE OPERATOR: Natalia Hawkins ANESTHESIA TYPE: Local By Surgeon and General LMA/ETT (ASA 2E/ Royal Berumen, CHEMICAL PREPARER) Refer to Anesthesia Record ESTIMATED BLOOD LOSS: 25 PATHOLOGY: other (Appendix) COMPLICATIONS: None Patient was transported to: PACU Patient's condition: stable Indications: Mr Russo is a pleasant 70-year-old gentleman who came to the emergency department with right lower quadrant abdominal pain since 4:00 this morning. Labs showed normal white count but he did have a left shift. He was dehydrated and tachycardic. CT scan revealed an enlarged appendix without fluid or air in the abdomen. Laparoscopic appendectomy was recommended. Risks, benefits and complications have been reviewed. Complications include but are not limited to bleeding, infection, injury to adjacent bowel, abscess formation, staple line leak, inability to do the procedure laparoscopically and adverse reaction to the medications. Questions were entertained and answered to their satisfaction and they wished to proceed. No guarantees were given or implied. Findings: Enlarged appendix with some inflammation. No purulent fluid and no signs of perforation Procedure Description: After informed consent was obtained the patient was taken to the operating room placed in the supine position, SCDs were applied as well as monitors. A timeout was done. The patient was then placed under general anesthesia and intubated without any difficulty. Next a Rowell catheter was placed in a standard surgical fashion. At this point the abdomen was prepped and draped in a sterile surgical fashion with chlorhexidine. A second timeout was done and the patient's name, date of , operation to be performed, DVT prophylaxis, antibiotic given, and fire risk was assessed. Exparel was mixed 50-50 with 0.25% Bupivocaine. The mixture was injected into the dermis just below the umbilicus. A small 5 mm incision was made with an 11 blade. The skin was grasped with penetrating towel clamps on either side of the incision and then using a Visiport a 5 mm port was placed under direct visualization into the abdomen. The abdomen was insufflated. Thre bowel under the port was inspected. No injuries were noted. Local anesthetic was then injected just above the pubic symphysis just to the right of midline. A small 5 mm incision was made with an 11 blade and another 5 mm port was placed under direct visualization into the abdomen. The local anesthetic was then injected in the left lower quadrant area and a 12 mm incision was made with an 11 blade. A 12 mm port was then placed under direct visualization. The patient's bed was then turned to the left and head down allowing me to sweep of the small bowel out of the right lower quadrant. The cecum was gently grasped and the appendix was identified. The appendix looked inflammed and thickened at the tip. No purulent fluid was noted. The appendix was grasped at the neck and pulled up slightly allowing me to visualize the junction with the cecum. Using the laparoscopic LigaSure the mesoappendix was slowly transected. Using a laparoscopic straight stapler the appendix was then transected at the junction with the cecum. The appendix was placed into an Endo Catch bag and removed through the 12 mm port site. The port was placed back into the abdomen and the staple line was identified. No bleeding was noted. The transected mesentery was identified and no bleeding was noted. The abdomen was then irrigated with 500 cc of warm saline. The effluent was clear. The 2 5 mm ports were then removed under direct visualization and no bleeding was noted from the fascia. The insufflation was stopped and the 12 mm port was removed. The 12 mm port site fascia was closed with a 0 Vicryl [id number] suture. The skin was then closed with 4-0 Vicryl. The skin was cleaned and dried and skin affix was applied. The rowell catheter was removed. The patient was woken up, extubated and taken back to recovery room in stable condition. There were no immediate complications. Sponge, instrument and needle counts were correct at the end of the case x2.
--- NOTE | 2020-12-22 19:05 | W.ANESPOSTOP ---
Postoperative Evaluation Date, Time and Location Date Performed: 12/22/20 Time Performed: 19:05 Patient Location: PACU Vital Signs Most Recent Imported Vital Signs: Most Recent Vital Signs Temp Pulse Resp BP Pulse Ox 36.7 C 106 H 17 134/97 H 97 12/22/20 19:00 12/22/20 19:00 12/22/20 19:00 12/22/20 19:00 12/22/20 19:00 Pain Score Most Recent Pain Score: Most Recent Pain Score Pain Level 0 12/22/20 19:00 Assessment Mental Status: Arousable with meaningful communication Airway and Respiratory Function: Patent airway with normal (patient baseline) respiratory exam Cardiovascular Function: Hemodynamically Stable Hydration Status: Adequately Hydrated Nausea & Vomiting: No Nausea or Vomiting Pain: Pt. Denies Any Pain Peripheral Nerve Block: Patient did not receive a nerve block
[2020-12-22] MEDS: Enoxaparin 40 MG/0.4 ML SYR SC (20:09)
[2020-12-22] MEDS: Gabapentin 600 MG TAB PO (20:09)
[2020-12-23] MEDS: Ketorolac 15 MG/ML VIAL IVP ×3 (00:18→13:36)
[2020-12-23] MEDS: Lactated Ringers 1,000 ML 150 ML IV (02:51)
[2020-12-23 03:55] VITALS: BP 115/66; PULSE 99; RESP 18; TEMP 37.1; O2SAT 95
[2020-12-23 07:07] LABS: HCT 41.3 % (40.0-50.0); HGB 13.8 g/dL (13.5-17.5); MCH 30.3 pg (27.0-33.0); MCHC 33.4 % (32.0-36.0); MCV 90.6 fL (80-95); MPV 10.3 fL (8.0-11.0); Platelet Count 163 10^3/uL (130-400); RBC 4.56 10^6/uL (4.36-5.78); RDW 12.1 % (11.8-14.1); RDW-SD 40.1 fL; WBC 16.77 10^3/uL (4.4-10.8)
[2020-12-23 08:35] VITALS: BP 130/85; PULSE 97; RESP 18; TEMP 36.6; O2SAT 97
[2020-12-23] MEDS: Omeprazole 20 MG CAPCR PO (08:37)
[2020-12-23] MEDS: Gabapentin 600 MG TAB PO ×3 (08:37→21:27)
--- NOTE | 2020-12-23 08:46 | W.PM.PROGNOT ---
Documented by User: LINDSEY Mendoza 12/23/20 08:49 Date of Service Date of service: 12/23/20 Time of Service: 08:47 Assessment and Plan Assessment and plan (1) Acute appendicitis: Status: Acute Assessment and plan: POD #1 s/p laparoscopic appendectomy. Will have a regular diet for breakfast (+) Flatus Pain is well controlled. No fevers or chills over night. Encouraged ambulation and deep breathing. P// If tolerating regular diet and ambulating independently, will d/c home later today. Qualifiers: Acute appendicitis type: with localized peritonitis Appendicitis abscess presence: without abscess Appendicitis gangrene presence: without gangrene Appendicitis perforation presence: without perforation Qualified Code(s): K35.30 - Acute appendicitis with localized peritonitis, without perforation or gangrene Subjective Subjective Interval history since last seen: Patient reports he is feeling very well, very minor pain. He states he is passing some flatus. Tolerated soup and clear liquids well last night. Exam Const General: cooperative, healthy appearing and comfortable Orientation: alert and oriented x3 Resp Effort & Inspection: normal respiratory effort, no audible wheezes and no cough GI Inspection: incision (skin a fix in place. No erythema, swelling or drainage. ) Palpation: soft, no guarding and nontender Objective Last Vital Signs Temp 37.1 C 12/23/20 03:55 Pulse 99 H 12/23/20 03:55 Resp 18 12/23/20 03:55 BP 115/66 12/23/20 03:55 Pulse Ox 95 12/23/20 03:55 Laboratory Results - last 24 hr 12/22/20 12/22/20 12/22/20 15:24 15:24 15:24 WBC 8.12 RBC 5.69 Hgb 17.5 Hct 50.7 H MCV 89.1 MCH 30.8 MCHC 34.5 RDW 11.9 Plt Count 159 MPV 9.9 Immature Gran % 0.2 Neutrophils % 95.2 Lymphocytes % 3.0 Monocytes % 0.6 Eosinophils % 0.4 Basophils % 0.6 Nucleated RBC % 0 Absolute Neutrophils 7.73 H Absolute Lymphocytes 0.24 L Absolute Monocytes 0.05 L Absolute Eosinophils 0.03 Absolute Basophils 0.05 VBG Lactate 2.3 H* Sodium 141 Potassium 3.7 Chloride 103 Carbon Dioxide 25.4 Anion Gap 12.6 H BUN 23 H Creatinine 1.0 Estimated GFR/1.73 m2 >= 60.00 Glucose 142 H Calcium 9.1 Magnesium 1.4 L Total Bilirubin 1.1 H AST 16 ALT 24 Alkaline Phosphatase 86 Troponin I Total Protein 8.0 Albumin 4.3 Lipase 69 Urine Color Urine Clarity Urine pH Ur Specific [place] Urine Protein Urine Ketones Urine Blood Urine Nitrite Urine Bilirubin Urine Urobilinogen Ur Leukocyte Esterase Urine RBC Urine WBC Ur Epithelial Cells Urine Crystals Urine Bacteria Urine Casts Urine Mucus Ur Culture Indicated? Urine Glucose COVID-19 Source SARS-CoV-2 (PCR) 12/22/20 12/22/20 12/22/20 15:24 15:45 16:35 WBC RBC Hgb Hct MCV MCH MCHC RDW Plt Count MPV Immature Gran % Neutrophils % Lymphocytes % Monocytes % Eosinophils % Basophils % Nucleated RBC % Absolute Neutrophils Absolute Lymphocytes Absolute Monocytes Absolute Eosinophils Absolute Basophils VBG Lactate Sodium Potassium Chloride Carbon Dioxide Anion Gap BUN Creatinine Estimated GFR/1.73 m2 Glucose Calcium Magnesium Total Bilirubin AST ALT Alkaline Phosphatase Troponin I < 0.05 Total Protein Albumin Lipase Urine Color Yellow Urine Clarity Clear Urine pH 6.0 Ur Specific [place] 1.020 Urine Protein Negative Urine Ketones 15 H Urine Blood Moderate H Urine Nitrite Positive H Urine Bilirubin Negative Urine Urobilinogen 0.2 Ur Leukocyte Esterase Trace H Urine RBC 5-10 H Urine WBC 5-10 Ur Epithelial Cells Rare Urine Crystals Few amorphous Urine Bacteria Rare Urine Casts Negative Urine Mucus Negative Ur Culture Indicated? Yes Urine Glucose Negative COVID-19 Source Nasopharyx SARS-CoV-2 (PCR) Negative 12/22/20 12/23/20 18:24 06:42 WBC 16.77 H D RBC 4.56 Hgb 13.8 D Hct 41.3 MCV 90.6 MCH 30.3 MCHC 33.4 RDW 12.1 Plt Count 163 MPV 10.3 Immature Gran % Neutrophils % Lymphocytes % Monocytes % Eosinophils % Basophils % Nucleated RBC % Absolute Neutrophils Absolute Lymphocytes Absolute Monocytes Absolute Eosinophils Absolute Basophils VBG Lactate Sodium Potassium Chloride Carbon Dioxide Anion Gap BUN Creatinine Estimated GFR/1.73 m2 Glucose Calcium Magnesium Total Bilirubin AST ALT Alkaline Phosphatase Troponin I Cancelled Total Protein Albumin Lipase Urine Color Urine Clarity Urine pH Ur Specific [place] Urine Protein Urine Ketones Urine Blood Urine Nitrite Urine Bilirubin Urine Urobilinogen Ur Leukocyte Esterase Urine RBC Urine WBC Ur Epithelial Cells Urine Crystals Urine Bacteria Urine Casts Urine Mucus Ur Culture Indicated? Urine Glucose COVID-19 Source SARS-CoV-2 (PCR) Documented by User: Bernadette Peters MD 12/23/20 09:51
--- NOTE | 2020-12-23 10:05 | PDOC.CMIN ---
- If Service Date Differs Date of service: 12/23/20 Time of Service: 10:05 Care Management Initial Assess REASON FOR HOSPITALIZATION:: Acute Appendicitis PAST MEDICAL HISTORY/PAST SURGICAL HISTORY:: Medical History. Hepatic steatosis. Lumbar back pain with radiculopathy affecting left lower extremity. Sigmoid diverticulosis (01/30/18). Surgical History. cyst removal PREVIOUS FUNCTIONAL STATUS/SOCIAL/FAMILY SUPPORTS:: Jack lives in [place] with his S/O Antonio. 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 He is independent at baseline. CURRENT FUNCTIONAL STATUS:: Jack was sitting up in bed when CM met with him. He reported that he was feeling good, and is hoping to be discharged today. Jack was offered to have his Covid vaccine before he is discharged, which he was happy to accept. CM will continue to follow. ADVANCE DIRECTIVES:: None on file, CM will offer forms. Has patient been provided with info about the portal/API?: Yes Did the patient sign up for the portal?: Yes (previously) CODE STATUS:: Full Code INSURANCE COVERAGE / FINANCIAL ISSUES:: [facility] MCR replacement CURRENT HOME/COMMUNITY SERVICES/EQUIPMENT:: No current services or equipment. PRIMARY CARE PHYSICIAN:: Shiv Aceves POTENTIAL DISCHARGE NEEDS:: Follow up appointments PATIENT/FAMILY EDUCATION NEEDS:: Review discharge instructions regarding activity levels and medications, discussion of self care needs including ask me three. ANTICIPATED BARRIERS TO DISCHARGE:: None identified. TRANSPORTATION:: Via private vehicle by his s/o. PLAN:: Anticipate Jack will return home when medically cleared by . His s/o will drive him home via private vehicle. He will follow up with surgical services, his PCP and discharge plan of care. CM will continue to follow.
--- NOTE | 2020-12-23 10:09 | DSE_ITS ---
Date of service: 12/23/20 Time of Service: 10:09 DS: Diagnosis Discharge Diagnosis (1) Acute appendicitis: Status: Acute Discharge Plan Disposition Patient Disposition: HOME Condition: Stable Discharge Details Reason For Visit: Acute Appendicitis Admit Date/Time: 12/22/20 18:44 Admit Provider: Bernadette Peters Attending Provider: Bernadette Peters [facility] Hospital Course: 70 y/o male who was evaluated in the ER [facility] and found to have acute appendicitis, under went laparoscopic appendectomy on 12/22. Pain has been controlled very well post-operatively. He is independent with ambulation and is tolerating a regular diet. He has no fevers or chills over night. Elevated WBC, Urine cultures pending, was positive for nitrates and trace leukocytes. Will treat with PO Ciprofloxacin for UTI and will send referral to Urology. D/C home. He will need a follow appointment in the Surgical Office in 1-2 weeks. Home Meds and New Rx's Prescriptions: New ciprofloxacin HCl 250 mg tablet 250 mg PO BID 3 Days Qty: 6 RF: 0 Continued oxycodone-acetaminophen [Percocet] 5-325 mg tablet 1 tab PO QHS MDD 5 mg oxycodone PRN (Reason: pain) Qty: 14 RF: 0 gabapentin 600 mg tablet 600 mg PO TID Qty: 270 RF: 3 meloxicam 15 mg tablet 15 mg PO DAILY PRN (Reason: pain) 30 Days Qty: 30 RF: 5 esomeprazole magnesium [Nexium] 40 MG capsule,delayed release(DR/EC) 40 mg PO every other day RF: 0 Motrin PM 1 EACH tablet 2 ea PO HS RF: 0 lidocaine 5 % adhesive patch,medicated 1 patch topical DAILY PRN (Reason: pain) Qty: 15 RF: 0 Discharge Instructions Instructions: Laparoscopic Appendectomy (DC) Referrals: Rowena Wei PA [PHYSICIANS LAB SPECIALIST] - Magui Traore DNP [NURSE PRACTITIONER] - Activity:: Activity as Tolerated Equipment/Supplies:: No Equipment Needed Diet:: As Tolerated Discharge Orders Discharge Orders: Discharge Order (Routine); Ordered 12/23/20 Ordered By: Rowena Wei DS: Summary Time Spent with Patient providing and/or coordinating discharge services: Less than 30 minutes Status at Discharge Functional status at discharge: independent ambulation Overall status at discharge: patient is back to baseline Mental Status: mental status grossly normal Speech and Movement: speech and movement normal Mood: congruent mood Affect: normal affect Exam Psych Mental Status: mental status grossly normal Speech and Movement: speech and movement normal Mood: congruent mood Affect: normal affect DS: Data Vitals/I&O Vitals and I&O: Vital Signs Temperature 36.6 C 12/23/20 08:35 Temperature Source Tympanic 12/23/20 08:35 Pulse 97 H 12/23/20 08:35 Pulse Rhythm Regular 12/23/20 04:42 Pulse 120 H 12/22/20 18:00 Respiratory Rate 18 12/23/20 08:35 Respiratory Effort 12/23/20 04:42 Respiratory Depth Normal 12/23/20 04:42 Respiratory Pattern Normal 12/23/20 04:42 Blood Pressure 130/85 12/23/20 08:35 Blood Pressure Mean 93 12/22/20 17:46 Blood Pressure Position Supine 12/22/20 15:05 Pulse Oximetry 97 12/23/20 08:35 Respiratory End-tidal CO2 39 12/22/20 19:00 Oxygen Delivery Method Room Air 12/23/20 08:35 Oxygen Flow Rate 0 12/23/20 08:35 Pain Level 0 12/23/20 08:35 Intake & Output 12/22/20 12/23/20 12/23/20 18:59 06:59 18:59 Intake Total 2050 / 4400 2350 / 4400 120 / 120 Output Total 0 / 0 Balance 2050 / 4400 2350 / 4400 120 / 120 Weight 78.7 kg 78.471 kg Intake: IV 2050 / 4010 1960 / 4010 Oral 390 / 390 120 / 120 Output: Emesis 0 / 0 Other: Urine Color Yellow Urine Appearance Clear Urine Odor Normal Emesis Description None Voiding Methods Toilet Data Completed and Pending Labs on day of discharge: Labs from last 24 hours 12/23/20 12/22/20 12/22/20 06:42 18:24 16:35 WBC 16.77 H D RBC 4.56 Hgb 13.8 D Hct 41.3 MCV 90.6 MCH 30.3 MCHC 33.4 RDW 12.1 Plt Count 163 MPV 10.3 Immature Gran % Neutrophils % Lymphocytes % Monocytes % Eosinophils % Basophils % Nucleated RBC % Absolute Neutrophils Absolute Lymphocytes Absolute Monocytes Absolute Eosinophils Absolute Basophils VBG Lactate Sodium Potassium Chloride Carbon Dioxide Anion Gap BUN Creatinine Estimated GFR/1.73 m2 Glucose Calcium Magnesium Total Bilirubin AST ALT Alkaline Phosphatase Troponin I Cancelled Total Protein Albumin Lipase Urine Color Yellow Urine Clarity Clear Urine pH 6.0 Ur Specific [place] 1.020 Urine Protein Negative Urine Ketones 15 H Urine Blood Moderate H Urine Nitrite Positive H Urine Bilirubin Negative Urine Urobilinogen 0.2 Ur Leukocyte Esterase Trace H Urine RBC 5-10 H Urine WBC 5-10 Ur Epithelial Cells Rare Urine Crystals Few amorphous Urine Bacteria Rare Urine Casts Negative Urine Mucus Negative Ur Culture Indicated? Yes Urine Glucose Negative COVID-19 Source SARS-CoV-2 (PCR) 12/22/20 12/22/20 12/22/20 15:45 15:24 15:24 WBC 8.12 RBC 5.69 Hgb 17.5 Hct 50.7 H MCV 89.1 MCH 30.8 MCHC 34.5 RDW 11.9 Plt Count 159 MPV 9.9 Immature Gran % 0.2 Neutrophils % 95.2 Lymphocytes % 3.0 Monocytes % 0.6 Eosinophils % 0.4 Basophils % 0.6 Nucleated RBC % 0 Absolute Neutrophils 7.73 H Absolute Lymphocytes 0.24 L Absolute Monocytes 0.05 L Absolute Eosinophils 0.03 Absolute Basophils 0.05 VBG Lactate Sodium Potassium Chloride Carbon Dioxide Anion Gap BUN Creatinine Estimated GFR/1.73 m2 Glucose Calcium Magnesium Total Bilirubin AST ALT Alkaline Phosphatase Troponin I < 0.05 Total Protein Albumin Lipase Urine Color Urine Clarity Urine pH Ur Specific [place] Urine Protein Urine Ketones Urine Blood Urine Nitrite Urine Bilirubin Urine Urobilinogen Ur Leukocyte Esterase Urine RBC Urine WBC Ur Epithelial Cells Urine Crystals Urine Bacteria Urine Casts Urine Mucus Ur Culture Indicated? Urine Glucose COVID-19 Source Nasopharyx SARS-CoV-2 (PCR) Negative 12/22/20 12/22/20 15:24 15:24 WBC RBC Hgb Hct MCV MCH MCHC RDW Plt Count MPV Immature Gran % Neutrophils % Lymphocytes % Monocytes % Eosinophils % Basophils % Nucleated RBC % Absolute Neutrophils Absolute Lymphocytes Absolute Monocytes Absolute Eosinophils Absolute Basophils VBG Lactate 2.3 H* Sodium 141 Potassium 3.7 Chloride 103 Carbon Dioxide 25.4 Anion Gap 12.6 H BUN 23 H Creatinine 1.0 Estimated GFR/1.73 m2 >= 60.00 Glucose 142 H Calcium 9.1 Magnesium 1.4 L Total Bilirubin 1.1 H AST 16 ALT 24 Alkaline Phosphatase 86 Troponin I Total Protein 8.0 Albumin 4.3 Lipase 69 Urine Color Urine Clarity Urine pH Ur Specific [place] Urine Protein Urine Ketones Urine Blood Urine Nitrite Urine Bilirubin Urine Urobilinogen Ur Leukocyte Esterase Urine RBC Urine WBC Ur Epithelial Cells Urine Crystals Urine Bacteria Urine Casts Urine Mucus Ur Culture Indicated? Urine Glucose COVID-19 Source SARS-CoV-2 (PCR) 12/22/20 16:35 Urine - Reflex from Urine Culture - Pending 12/22/20 15:30 Blood Blood Culture - Pending 12/22/20 15:24 Blood Blood Culture - Pending Preliminary micro results at discharge 12/22/20 16:35 Urine Culture - Pending Urine - Reflex from Ua 12/22/20 15:30 Blood Culture - Pending Blood 12/22/20 15:24 Blood Culture - Pending Blood [facility] Medical History (Updated 12/22/20 @ 17:23 by Amos Yung MD) Hepatic steatosis Lumbar back pain with radiculopathy affecting left lower extremity Sigmoid diverticulosis (01/30/18) Surgical History cyst removal Family History Mother No problems noted. Father No problems noted. Brother Alcohol abuse Brother No problems noted. Brother No problems noted. Brother No problems noted. Son No problems noted. Son No problems noted. Daughter No problems noted. 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
[2020-12-23] MEDS: metroNIDAZOLE 500 MG/100 ML BAG 100 MG IVPB ×2 (10:31→18:35)
[2020-12-23] MEDS: CIPROFLOXACIN 400 MG/200 ML BAG 200 MG IVPB (10:31)
--- NOTE | 2020-12-23 11:14 | CHAPLAIN ---
Jack was resting comfortably in bed. He told me about his surgery yesterday to remove his appendix. He expects to be discharged soon.
--- NOTE | 2020-12-23 15:03 | PDOC.CMDIS ---
- If Service Date Differs Date of service: 12/23/20 Time of Service: 15:03 LACE Index Scoring Tool - Questions: Length of Stay (in days): 1 Acuity (Admit via E.D.?): Yes E.D. Visits: 2 - Answers: Total Score: 6 Risk of Readmission: Low Risk Care Management Discharge Reason for Hospitalization: Acute Appendicitis Discharge Plan: Jack will return home with no services at this time. His s/o will drive him home via private vehicle. He will follow up with surgical services, his PCP and his discharge plan of care. Patient/Family Education Needs: Review discharge instructions regarding activity levels and medications, discussion of self care needs including ask me three.
[2020-12-23 15:32] VITALS: BP 138/88; PULSE 88; RESP 16; TEMP 36.4; O2SAT 94
[2020-12-23] MEDS: Normal Saline Flush 10 ML SYR IVP ×2 (18:35→21:28)
[2020-12-23] MEDS: Enoxaparin 40 MG/0.4 ML SYR SC (21:28)
[2020-12-24] VITALS: BP 131/85; PULSE 99; RESP 18; TEMP 36.6; O2SAT 94
[2020-12-24] MEDS: CIPROFLOXACIN 400 MG/200 ML BAG 200 MG IVPB ×2 (00:02→11:50)
[2020-12-24] MEDS: Ketorolac 15 MG/ML VIAL IVP ×3 (00:02→11:49)
[2020-12-24] MEDS: Normal Saline Flush 10 ML SYR IVP ×4 (00:02→09:32)
[2020-12-24] MEDS: Melatonin 3 MG TAB PO (00:22)
[2020-12-24] MEDS: metroNIDAZOLE 500 MG/100 ML BAG 100 MG IVPB ×2 (01:39→09:32)
[2020-12-24 03:35] VITALS: TEMP 36.5
[2020-12-24 07:24] LABS: Abs Immature Grans 0.03 10^3/uL (0.0-0.06); Absolute Basophil Count 0.03 10^3/uL (0.0-0.2); Absolute Eosinophil Count 0.15 10^3/uL (0.0-0.7); Absolute Lymphocyte Count 0.78 10^3/uL (1.2-3.4); Absolute Monocyte Count 0.42 10^3/uL (0.1-0.8); Basophils % 0.5; Eosinophils % 2.4; HCT 40.5 % (40.0-50.0); HGB 13.8 g/dL (13.5-17.5); Immature Grans % 0.5; Lymphocytes % 12.3; MCH 30.7 pg (27.0-33.0); MCHC 34.1 % (32.0-36.0); MCV 90.2 fL (80-95); MPV 10.5 fL (8.0-11.0); Monocytes % 6.6; Neutrophils % 77.7; Nucleated RBC 0 %; Platelet Count 134 10^3/uL (130-400); RBC 4.49 10^6/uL (4.36-5.78); RDW 12.3 % (11.8-14.1); RDW-SD 40.2 fL; WBC 6.36 10^3/uL (4.4-10.8)
[2020-12-24 07:30] LABS: Absolute Neutrophil Count 4.94 10^3/uL (1.2-6.7)
[2020-12-24 07:31] VITALS: BP 132/83; PULSE 86; RESP 17; TEMP 36.5; O2SAT 93
--- NOTE | 2020-12-24 07:31 | W.PM.PROGNOT ---
Date of Service Date of service: 12/24/20 Time of Service: 07:31 Assessment and Plan Assessment and plan (1) Acute appendicitis: Status: Acute Assessment and plan: POD #2 s/p laparoscopic appendectomy. Patient was kept an additional night secondary to (+) blood cultures from Gram (+) cocci Restarted Flagy and Ciprofloxacin Tolerating regular diet (+) Flatus Pain is well controlled. No fevers or chills over night. Encouraged ambulation and deep breathing. Awaiting sensitivity results Qualifiers: Acute appendicitis type: with localized peritonitis Appendicitis gangrene presence: without gangrene Appendicitis perforation presence: without perforation Appendicitis abscess presence: without abscess Qualified Code(s): K35.30 - Acute appendicitis with localized peritonitis, without perforation or gangrene Subjective Subjective Interval history since last seen: I feel compeletely fine. Denies any fevers or chills. Exam Const General: cooperative, healthy appearing and comfortable Orientation: alert and oriented x3 Resp Effort & Inspection: normal respiratory effort, no audible wheezes and no cough Objective Last Vital Signs Temp 36.5 C 12/24/20 03:35 Pulse 99 H 12/24/20 00:00 Resp 18 12/24/20 00:00 BP 131/85 12/24/20 00:00 Pulse Ox 94 12/24/20 00:00 Laboratory Results - last 24 hr 12/24/20 06:21 WBC 6.36 D RBC 4.49 Hgb 13.8 Hct 40.5 MCV 90.2 MCH 30.7 MCHC 34.1 RDW 12.3 Plt Count 134 MPV 10.5 Immature Gran % 0.5 Neutrophils % 77.7 Lymphocytes % 12.3 Monocytes % 6.6 Eosinophils % 2.4 Basophils % 0.5 Nucleated RBC % 0 Absolute Neutrophils 4.94 Absolute Lymphocytes 0.78 L Absolute Monocytes 0.42 Absolute Eosinophils 0.15 Absolute Basophils 0.03
[2020-12-24] MEDS: Omeprazole 20 MG CAPCR PO (07:42)
[2020-12-24] MEDS: Gabapentin 600 MG TAB PO ×2 (07:42→15:05)
[2020-12-24 07:43] LABS: ALT 25 U/L (16-63); AST 19 U/L (15-37); Albumin 2.9 g/dL (3.4-5.0); Alkaline Phosphatase 76 U/L (46-116); Anion Gap 6.6 mmol/L (3-11); BUN 21 mg/dL (7-18); Bilirubin, Total 0.3 mg/dL (0.2-1.0); CO2 27.4 mmol/L (21.0-32.0); Calcium 8.2 mg/dL (8.5-10.1); Chloride 109 mmol/L (98-107); Glucose 112 mg/dL (74-106); Potassium 3.7 mmol/L (3.5-5.1); Sodium 143 mmol/L (136-145); Total Protein 6.1 g/dL (6.4-8.2)
[2020-12-24 15:06] VITALS: BP 131/85; PULSE 77; RESP 17; TEMP 36.1; O2SAT 96
--- NOTE | 2020-12-24 16:48 | PDOC.CMPRO ---
- If Service Date Differs Date of service: 12/24/20 Time of Service: 16:48
--- NOTE | 2020-12-24 16:59 | PDOC.CMDIS ---
- If Service Date Differs Date of service: 12/24/20 Time of Service: 16:59 LACE Index Scoring Tool - Questions: Length of Stay (in days): 2 Acuity (Admit via E.D.?): Yes E.D. Visits: 2 - Answers: Total Score: 7 Risk of Readmission: Low Risk Care Management Discharge Reason for Hospitalization: Acute Appendicitis Discharge Plan: Jack will return home with no new services at this time. He was scheduled for discharge yesterday, but it was cancelled due to his positive blood cultures. Today, it was determined that he will be discharged with oral antibiotics. CM called and LVM for Surgical services to set up a follow up appointment in one week, per MD. His s/o will drive him home via private vehicle. He will follow up with his discharge plan of care. He is happy to be going home. Patient/Family Education Needs: Review discharge instructions regarding activity levels and medications, discussion of self care needs including ask me three.
== END 2020-12-24 17:54 | disposition home or self-care (01) ==
LOC: ER 17:23 → DSU 18:05 → MS 19:32
PROVIDERS: Surgery; Admitting Provider Surgery; Emergency Provider Emergency Medicine; PCP Family Medicine; Visit Provider Surgery
PROC: 0DTJ4ZZ Resection of Appendix, Percutaneous Endoscopic Approach (ICD-10-PCS; CPT 44970; principal; 2020-12-22 18:20)
DX: K35.30 Acute appendicitis with localized peritonitis, without perforation or gangrene (principal); K76.0 Fatty (change of) liver, not elsewhere classified; K57.30 Diverticulosis of large intestine without perforation or abscess without bleeding; M54.16 Radiculopathy, lumbar region; Z20.822 Contact with and (suspected) exposure to COVID-19; Z79.899 Other long term (current) drug therapy
CPT/HCPCS: 44970; 36415; 80053; 83690; 85027; 87040; 87077; 87635; 93005; 96361; 96365; 96366; 96375; 99219; 99285; J1650; 74177; 81003; 81015; 83605; 83735; 84484; 85025; 87086; 87186; 88304; 93010; 99284; G0378; J0744; J1100; J1885; J2001; J2405; J2543; J2704; J3490

== ENCOUNTER → 2021-01-01 13:24 | Outpatient (BNVA) | payer OTHER, SELFPAY | PROVIDERS: PCP Family Medicine; Referring Provider Family Medicine; Visit Provider Physical Therapy Assistant | DX: Z48.815 Encounter for surgical aftercare following surgery on the digestive system (principal); Z90.49 Acquired absence of other specified parts of digestive tract ==

== ENCOUNTER → 2021-01-20 10:54 | Outpatient (BNVA) | payer OTHER, SELFPAY | PROVIDERS: PCP Family Medicine; Referring Provider Family Medicine; Visit Provider Nurse Practitioner Gerontology | DX: N40.1 Benign prostatic hyperplasia with lower urinary tract symptoms (principal); N13.8 Other obstructive and reflux uropathy | CPT/HCPCS: 99215 ==

== ENCOUNTER → 2021-07-27 01:43 | Outpatient (CLI) | payer MEDICARE, SELFPAY ==
--- NOTE | 2021-07-27 09:40 | DI.RAD_ITS ---
Exam(s) XR KNEE LT 3V AP,LAT,MARGIE EXAM: XR KNEE LT 3V AP,LAT,MARGIE CLINICAL HISTORY: 3+ months of L medial knee pain,oa,m17.12 TECHNIQUE: COMPARISON: No exams were available for comparison FINDINGS: Three views were obtained. There is moderate narrowing of the cartilaginous joint space of the media l tibiofemoral joint. Otherwise cartilaginous joint spaces appear fairly well maintained. No bony a bnormality seen. The lateral view shows a questionable small knee joint effusion. IMPRESSION: Mild degenerative changes as described above. RADIATION DOSE DELIVERED: Total DLP
== END ==
PROVIDERS: PCP Family Medicine; Visit Provider Family Medicine
DX: M17.12 Unilateral primary osteoarthritis, left knee (principal)
CPT/HCPCS: 73562

== ENCOUNTER → 2021-08-24 08:43 | Outpatient (BNVA) | payer MEDICARE, SELFPAY | PROVIDERS: PCP Family Medicine; Referring Provider Family Medicine; Visit Provider Nurse Practitioner Gerontology | DX: N40.1 Benign prostatic hyperplasia with lower urinary tract symptoms (principal); N13.8 Other obstructive and reflux uropathy | CPT/HCPCS: 81003; 99213 ==

== ENCOUNTER 2022-06-08 03:18 | Outpatient (CLI) | payer MEDICARE, SELFPAY ==
[2022-06-08 08:31] LABS: ALT 35 U/L (16-63); AST 22 U/L (15-37); Albumin 3.8 g/dL (3.4-5.0); Alkaline Phosphatase 85 U/L (46-116); Anion Gap 4.7 mmol/L (3-11); BUN 24 mg/dL (7-18); Bilirubin, Total 0.5 mg/dL (0.2-1.0); CO2 30.3 mmol/L (21.0-32.0); CREATININE 1.1 mg/dL (0.70-1.30); Calcium 9.2 mg/dL (8.5-10.1); Calculated LDL 179 mg/dL (<100); Chloride 106 mmol/L (98-107); Cholesterol 255 mg/dL (<200); Estimated GFR 72.67 (mL/min/1.73m2); Glucose 118 mg/dL (74-106); HDL Cholesterol 60 mg/dL (40-60); Potassium 4.1 mmol/L (3.5-5.1); Sodium 141 mmol/L (136-145); Total Protein 7.6 g/dL (6.4-8.2); Triglyceride 81 mg/dL (<150)
== END 2022-06-08 03:19 | disposition home or self-care (01) ==
LOC: LBO 03:19
PROVIDERS: PCP Family Medicine; Visit Provider Family Medicine
DX: N52.8 Other male erectile dysfunction (principal); N40.1 Benign prostatic hyperplasia with lower urinary tract symptoms; K76.0 Fatty (change of) liver, not elsewhere classified; R79.89 Other specified abnormal findings of blood chemistry
CPT/HCPCS: 36415; 80053; 80061

== ENCOUNTER 2022-11-28 11:13 | Day surgery (SDC) | payer MEDICARE, SELFPAY ==
[2022-11-28] MEDS: Tropicam./Phenyleph. (1/2.5%) 5 ML BTL OS ×3 (11:41→11:57)
[2022-11-28 11:43] VITALS: BP 157/101; PULSE 85; RESP 20; TEMP 36.3; O2SAT 95
[2022-11-28 11:45] VITALS: BP 144/97; PULSE 78
--- NOTE | 2022-11-28 11:58 | W.ANESPRE ---
General Info Date of Service Date Performed: 11/28/22 Height: 5 ft 7 in Weight: 78.5 kg Body Mass Index (BMI): 27.1 Surgical Procedure: Operation Date: 11/28/22 12:55 Proposed Procedure Side Surgeon p Cataract Extraction with IOL Implant Left Aaron Ness MD Meds Allergies and Home Medications Allergies Allergy/AdvReac Type Severity Reaction Status Date / Time cat dander Allergy Unknown unknown Verified 11/28/22 11:37 mold Allergy Verified 11/28/22 11:37 No Known Drug Allergies Allergy Verified 11/28/22 11:37 Home Medication Medication Instructions Recorded ibuprofen-diphenhydramine citrate 2 ea PO HS 02/12/18 200 mg-38 mg tablet (Motrin PM) esomeprazole magnesium 40 mg 40 mg PO DAILY 03/18/22 capsule,delayed release (Nexium) sildenafil 50 mg tablet 50 mg PO DAILY PRN sexual activity 03/18/22 #20 tabs meloxicam 15 mg tablet 15 mg PO DAILY PRN pain 30 days 11/15/22 #30 tabs Current Visit Medications: Current Medications Generic Name Dose Route Start Last Admin Trade Name Freq PRN Reason Stop Dose Admin Acetaminophen 1,000 mg 11/28/22 06:00 Acetaminophen 500 Mg Tab PO Q4H PRN PRN Miscellaneous Medication 0 ml 11/28/22 06:00 11/28/22 11:57 Tropicam./Phenyleph. (1/2.5%) 5 Ml Btl OS 1 drp DIRECTED ARIS Administration Miscellaneous Medication 0 ml 11/28/22 06:00 Prednisolone 1%, Moxifloxacin 0.5%, Nepafenac 0.1% 5ml Btl OS DIRECTED ARIS Tetracaine HCl 0 ml 11/28/22 06:00 Tetracaine 0.5% 4 Ml Btl OS DIRECTED ARIS PFSH Active Problems Active Problems: Problem Status Onset Code Sigmoid diverticulosis 01/30/18 K57.30 Acute appendicitis K35.80 BPH w urinary obs/LUTS N40.1, N13.8 Localized osteoarthritis of left knee M17.12 Seborrheic keratoses L82.1 Erectile dysfunction N52.9 Hyperlipidemia E78.5 Prediabetes R73.03 Nuclear age-related cataract, left eye H25.12 Cortical age-related cataract, left eye H25.012 Posterior subcapsular age-related cataract of left eye H25.042 Medical History Medical History Hepatic steatosis Lumbar back pain with radiculopathy affecting left lower extremity Surgical History Surgical History cyst removal Hx of appendectomy Tobacco Smoking/Tobacco Use Status: Never Alcohol Alcohol Intake: current Alcohol intake frequency: 3 or more drinks per day Alcohol type: wine Substance Use Substance use: Never Substance use type: does not use Vital Signs and Lab Results Vital Signs Most Recent Vital Signs in EMR: Most Recent Vital Signs Temp Pulse Resp BP Pulse Ox 36.3 C L 78 20 144/97 H 95 11/28/22 11:43 11/28/22 11:45 11/28/22 11:43 11/28/22 11:45 11/28/22 11:43 Lab Results Blood Type / Crossmatch: No Data to Display Complete Blood Count: No Data to Display Complete Metabolic Panel: No Data to Display Liver Function Panel: No Data to Display Coagulation Panel: No Data to Display Cardiac Panel: No Data to Display Arterial Blood Gas: No Data to Display Venous Blood Gas: No Data to Display Pancreas Panel: No Data to Display Thyroid Panel: No Data to Display Infectious Disease: No Data to Display Blood Cultures: No Data to Display Toxicology Panel: No Data to Display Imaging and Studies Imaging and Studies Study information below may be from another EMR and interpreted by another provider. Please see original notes in EMR for more complete details. EKG Summary: 12/18 Conclusion Sinus tachycardia...rate> 99 Right bundle branch block.. Nonspecific st changes Anesthesia Assessment and Plan Anesthesia History Personal History: No History of Anesthesia Complications Family History: No Family History of Anesthesia Complications Exercise Tolerance Exercise Tolerance: Metabolic Equivalents>4 Pertinent Negatives Pertinent Negatives: No Symptoms of GERD Cardiac & Pulmonary Exam Cardiac Exam: Normal S1/S2 Heart Sounds Pulmonary Exam: Clear Bilateral Breath Sounds Implantable Cardiac Device Does patient have a Pacemaker or an ICD?: No Airway Exam Known Difficult Airway: No Mallampati Class: 3 Mouth Opening: Normal (> 3cm) Thyromental Distance: Greater than 3 cm Neck Range of Motion: Full ROM Neck Circumference: Normal Teeth Condition: Normal Dentition Airway Comments: ?Multiple broken and missing teeth ? ASA Classification ASA Score: ASA 2 Emergency Case?: No NPO Status NPO Status: NPO Clears >2 hours, Solids >8 hours Anesthesia Plan Resuscitation Status: Full Code Anesthesia Technique: MAC Anesthesia Airway Planned: Natural Airway Monitors Used: Standard Monitors
[2022-11-28 12:00] VITALS: BMI 27.1
[2022-11-28] MEDS: Tetracaine 0.5% 4 ML BTL OS (12:28)
[2022-11-28] MEDS: Povidone-Iodine Ophth 30 ML BTL (12:28)
[2022-11-28] MEDS: Lidocaine 1% Pres-Free 5 ML VIAL (12:35)
[2022-11-28] MEDS: Duovisc Viscoelastic System EACH 1 EACH (12:35)
[2022-11-28] MEDS: Phenylephrine/Lidocaine (15/10) MG/ML 1 ML VIAL (12:36)
[2022-11-28 12:56] VITALS: BP 157/106; PULSE 78; RESP 18; TEMP 36.3; O2SAT 96
--- NOTE | 2022-11-28 12:56 | W.PM.DSUDISC ---
Date of service: 11/28/22 Time of Service: 12:56 Discharge Plan Disposition Patient Disposition: Home Discharge Details Attending Provider: Aaron Ness Primary Care Provider: Shiv Aceves Home Meds and New Rx's Prescriptions: No Action sildenafil 50 mg tablet 50 mg PO DAILY PRN (Reason: sexual activity) Qty: 20 3RF Rx Instructions: administer 30 minutes to 4 hours before activity meloxicam 15 mg tablet 15 mg PO DAILY PRN (Reason: pain) 30 Days Qty: 30 5RF Rx Instructions: Take with food. Do not take with ibuprofen or naproxen. Motrin PM 1 EACH tablet 2 ea PO HS esomeprazole magnesium [Nexium] 40 mg capsule,delayed release(DR/EC) 40 mg PO DAILY Discharge Instructions Stand Alone Forms: Post-op Topical Cataract, Salvador Ganey (DSU) Discharge Orders Discharge Orders: Discharge Order (Routine); Ordered 11/28/22 Ordered By: Aaron Ness DS: Diagnosis Discharge Diagnosis (1) Posterior subcapsular age-related cataract of left eye: Status: Resolved (2) Cortical age-related cataract, left eye: Status: Resolved (3) Nuclear age-related cataract, left eye: Status: Resolved
--- NOTE | 2022-11-28 12:57 | W.PM.OP ---
Date of service: 11/28/22 Time of Service: 12:57 Operative Note Operative Note DATE OF PROCEDURE: 11/28/22 PRE-OP DIAGNOSIS: Nuclear/cortical/posterior subcapsular cataract, left eye POST-OP DIAGNOSIS: same PROCEDURE: Cataract extraction using phacoemulsification with intraocular lens implant, left eye SURGEON: Aaron Ness ANESTHESIA TYPE: Local By Surgeon and MAC Refer to Anesthesia Record PATHOLOGY: none sent COMPLICATIONS: None Patient was transported to: same day Patient's condition: stable Implants: Dusty Clareon [id number] Indications: Progressive decreased vision due to cataract, left eye Procedure Description: CATARACT SURGERY OPERATIVE REPORT PREOPERATIVE DIAGNOSIS: Nuclear/cortical/posterior subcapsular cataract, left eye POSTOPERATIVE DIAGNOSIS: Same OPERATION: Cataract extraction using phacoemulsification with posterior chamber intraocular lens implant, left eye. IOL: IOL Underwriter Solicitation Director/Model: Dusty Clareon [id number] IOL Power: + 20.5 diopters IOL Serial Number: [id number] Optic Diameter: 6.0mm Haptic/Overall Diameter: 13.0mm PHACO INFO: DustyPhoRenturion Vision System with OZil and Active Fluidics Cumulative Dispersed Energy (CDE): 5.10 seconds SURGEON: Aaron Ness MD, RAYNE ANESTHESIA: Monitored Anesthesia Care (MAC), with local sub-tenon's anesthetic infiltration COMPLICATIONS: None SPECIMENS: None INDICATIONS FOR PROCEDURE: The patient is a 72-year-old gentleman with history of diminished visual acuity in his left eye secondary to the development of nuclear/cortical/posterior subcapsular cataract. He is significantly symptomatic that he desires cataract surgery and attempt to improve and maximize his vision. The option of cataract surgery was offered to the patient and he wished to proceed. See office notes for detailed information. PROCEDURE: The correct surgical eye was identified and marked as the left eye and the pupil was dilated in the preoperative area using mydriatics and cycloplegics. The dilated pupil size was 7.0 mm. The patient elected to proceed without oral sedation. The patient was brought to the operating room where cardiopulmonary monitoring was instituted and surgical time-out was performed, confirming the correct operative eye and IOL power. Topical anesthesia was administered and ophthalmic povidone-iodine 5% was instilled into the conjunctival fornices. Lidocaine gel was applied to the cornea and the russ-ocular area was prepped with Betadine 10% solution and draped in the usual sterile fashion for intraocular surgery, including an aperture drape. A Tegaderm transparent film dressing was cut in half and used to cover the lashes and lid margins. Care was taken to sequester the lashes and lid margins under the Tegaderm dressing. A lid speculum was placed between the lids of the operative eye and the Dusty LuxOR Revalia operating microscope was maneuvered into position. Usman scissors were then used to make a conjunctival buttonhole approximately 6mm posterior to the limbus in the inferonasal quadrant. Blunt dissection was carried out to expose bare sclera, and a blunt-tipped sub-tenon?s anesthesia cannula was introduced and passed posteriorly along the globe where non-preserved plain lidocaine was injected into posterior sub-Tenon?s space. A sideport knife was used to make a paracentesis port superior/superiortemporally. Intraocular phenylephrine/lidocaine was injected into the anterior chamber. The anterior chamber was then filled with viscoelastic. A keratome knife was used construct a two-plane near-clear corneal tunnel extending 2.0mm into clear cornea in the temporal position. . A flap was raised on the anterior capsule and capsulorhexis forceps were used to complete a continuous curvilinear capsulorhexis of 5.5 mm. Balanced salt solution was then used to perform cortical cleaving hydrodissection and nuclear hydrodelineation until the lens could be freely rotated within the capsular bag. The lens nucleus was then disassembled and removed within the capsular bag and iris plane using phacoemulsification. Residual cortical material was removed using the 45-degree angled silicone I/A tip with 0.3mm port. The posterior capsule was carefully polished to remove as much residual lens epithelial cells as safely possible. The capsular bag was then inflated and the anterior chamber deepened with viscoelastic. The lens implant described above was inserted into the capsular bag using the Dusty Autonome Injector. A Kuglen hook was used to dial the IOL into position. Residual viscoelastic was then removed first from posterior to the IOL, then from the anterior chamber using the I/A handpiece. The lens implant was noted to center nicely within the capsular bag. The incisions were stromally hydrated, and the anterior chamber was reformed using BSS. Then 0.5cc of moxifloxacin 1.0mg/ml were injected into the capsular bag and anterior chamber. The incisions were checked with a Weck spear and found to be secure. Several drops of ophthalmic povidone-iodine 5% were then applied to the eye followed by two drops of Imprimis combination prednisolone/moxifloxacin/nepafenac solution. The drapes were removed and a clear plastic protective eye shield was placed over the eye. The patient was then returned to Same Day Surgery in stable condition.
[2022-11-28 13:00] VITALS: BP 140/90; PULSE 76
--- NOTE | 2022-11-28 13:20 | W.ANESPOSTOP ---
Postoperative Evaluation Date, Time and Location Date Performed: 11/28/22 Time Performed: 13:00 Patient Location: Day Surgery Unit Vital Signs Most Recent Imported Vital Signs: Most Recent Vital Signs Temp Pulse Resp BP Pulse Ox 36.3 C L 78 18 157/106 H 96 11/28/22 12:56 11/28/22 12:56 11/28/22 12:56 11/28/22 12:56 11/28/22 12:56 Pain Score Most Recent Pain Score: Most Recent Pain Score Pain Level 0 11/28/22 12:56 Assessment Mental Status: Awake (Alert & Oriented to Patient Baseline) Airway and Respiratory Function: Patent airway with normal (patient baseline) respiratory exam Cardiovascular Function: Hemodynamically Stable Hydration Status: Adequately Hydrated Nausea & Vomiting: No Nausea or Vomiting Pain: Pt. Denies Any Pain Peripheral Nerve Block: Patient did not receive a nerve block
== END 2022-11-28 13:17 | disposition home or self-care (01) ==
LOC: SUR 11:14
PROVIDERS: PCP Family Medicine; Visit Provider Ophthalmology
PROC: (CPT 66984; principal; 2022-11-28 12:45)
DX: H25.042 Posterior subcapsular polar age-related cataract, left eye (principal); H25.012 Cortical age-related cataract, left eye; H25.12 Age-related nuclear cataract, left eye; I10 Essential (primary) hypertension
CPT/HCPCS: 66984; V2632

== ENCOUNTER 2022-12-12 06:54 | Day surgery (SDC) | payer MEDICARE, SELFPAY ==
[2022-12-12 07:00] VITALS: BP 132/87; PULSE 71; RESP 16; TEMP 36.2; O2SAT 95
[2022-12-12] MEDS: Tropicam./Phenyleph. (1/2.5%) 5 ML BTL OD ×3 (07:20→07:30)
--- NOTE | 2022-12-12 07:53 | W.ANESPRE ---
General Info Date of Service Date Performed: 12/12/22 Height: 5 ft 7 in Weight: 80 kg Body Mass Index (BMI): 27.6 Surgical Procedure: Operation Date: 12/12/22 08:25 Proposed Procedure Side Surgeon p Cataract Extraction with IOL Implant Right Aaron Ness MD Actual Procedure Side Surgeon p Cataract Extraction with IOL Implant Right Aaron Ness MD Pre-Op Diagnosis Post-Op Diagnosis CATARACT OD CATARACT OD Meds Allergies and Home Medications Allergies Allergy/AdvReac Type Severity Reaction Status Date / Time cat dander Allergy Unknown unknown Verified 12/12/22 07:12 mold Allergy Verified 12/12/22 07:12 No Known Drug Allergies Allergy Verified 12/12/22 07:12 Home Medication Medication Instructions Recorded ibuprofen-diphenhydramine citrate 2 ea PO HS 02/12/18 200 mg-38 mg tablet (Motrin PM) esomeprazole magnesium 40 mg 40 mg PO DAILY 03/18/22 capsule,delayed release (Nexium) sildenafil 50 mg tablet 50 mg PO DAILY PRN sexual activity 03/18/22 #20 tabs meloxicam 15 mg tablet 15 mg PO DAILY PRN pain 30 days 11/15/22 #30 tabs Current Visit Medications: Current Medications Generic Name Dose Route Start Last Admin Trade Name Freq PRN Reason Stop Dose Admin Acetaminophen 1,000 mg 12/12/22 06:00 Acetaminophen 500 Mg Tab PO 01/11/23 05:59 Q4H PRN PRN Balanced Salt Solution 500 ml 12/12/22 06:00 Balanced Salt Soln.-Plus 500 Ml Bag OP 01/11/23 05:59 DIRECTED ARIS Miscellaneous Medication 0 ml 12/12/22 06:00 Prednisolone 1%, Moxifloxacin 0.5%, Nepafenac 0.1% 5ml Btl OD 01/11/23 05:59 DIRECTED ARIS Miscellaneous Medication 0 ml 12/12/22 06:00 12/12/22 07:30 Tropicam./Phenyleph. (1/2.5%) 5 Ml Btl OD 01/11/23 05:59 1 drp DIRECTED ARIS Administration Tetracaine HCl 0 ml 12/12/22 06:00 Tetracaine 0.5% 4 Ml Btl OD 01/11/23 05:59 DIRECTED ARIS PFSH Active Problems Active Problems: Problem Status Onset Code Sigmoid diverticulosis 01/30/18 K57.30 Acute appendicitis K35.80 BPH w urinary obs/LUTS N40.1, N13.8 Localized osteoarthritis of left knee M17.12 Seborrheic keratoses L82.1 Erectile dysfunction N52.9 Hyperlipidemia E78.5 Prediabetes R73.03 Nuclear age-related cataract, left eye H25.12 Cortical age-related cataract, left eye H25.012 Posterior subcapsular age-related cataract of left eye H25.042 Cortical age-related cataract, right eye H25.011 Posterior subcapsular age-related cataract, right eye H25.041 Medical History Medical History Hepatic steatosis Lumbar back pain with radiculopathy affecting left lower extremity Surgical History Surgical History (Updated 12/12/22 @ 07:12 by Dian Acosta RN) cyst removal H/O cataract removal with insertion of prosthetic lens H/O colonoscopy Hx of appendectomy Tobacco Smoking/Tobacco Use Status: Never Alcohol Alcohol Intake: current Alcohol intake frequency: 3 or more drinks per day Alcohol type: wine Substance Use Substance use: Never Substance use type: does not use Details: alcohol t-1, two glasses wine Vital Signs and Lab Results Vital Signs Most Recent Vital Signs in EMR: Most Recent Vital Signs Temp Pulse Resp BP Pulse Ox 36.2 C L 71 16 132/87 95 12/12/22 07:00 12/12/22 07:00 12/12/22 07:00 12/12/22 07:00 12/12/22 07:00 Lab Results Blood Type / Crossmatch: No Data to Display Complete Blood Count: No Data to Display Complete Metabolic Panel: No Data to Display Liver Function Panel: No Data to Display Coagulation Panel: No Data to Display Cardiac Panel: No Data to Display Arterial Blood Gas: No Data to Display Venous Blood Gas: No Data to Display Pancreas Panel: No Data to Display Thyroid Panel: No Data to Display Infectious Disease: No Data to Display Blood Cultures: No Data to Display Toxicology Panel: No Data to Display Imaging and Studies Imaging and Studies Study information below may be from another EMR and interpreted by another provider. Please see original notes in EMR for more complete details. EKG Summary: 12/18 Conclusion Sinus tachycardia...rate> 99 Right bundle branch block.. Nonspecific st changes Anesthesia Assessment and Plan Anesthesia History Personal History: No History of Anesthesia Complications Family History: No Family History of Anesthesia Complications Exercise Tolerance Exercise Tolerance: Metabolic Equivalents>4 Pertinent Negatives Pertinent Negatives: No Symptoms of GERD Cardiac & Pulmonary Exam Cardiac Exam: Normal S1/S2 Heart Sounds Pulmonary Exam: Clear Bilateral Breath Sounds Implantable Cardiac Device Does patient have a Pacemaker or an ICD?: No Airway Exam Known Difficult Airway: No Mallampati Class: 3 Mouth Opening: Normal (> 3cm) Thyromental Distance: Greater than 3 cm Neck Range of Motion: Full ROM Neck Circumference: Normal Teeth Condition: Normal Dentition Airway Comments: ?Multiple broken and missing teeth ? ASA Classification ASA Score: ASA 2 Emergency Case?: No NPO Status NPO Status: NPO Clears >2 hours, Solids >8 hours Anesthesia Plan Resuscitation Status: Full Code Anesthesia Technique: MAC Anesthesia Airway Planned: Natural Airway Monitors Used: Standard Monitors
[2022-12-12 07:54] VITALS: BMI 27.6
[2022-12-12] MEDS: Tetracaine 0.5% 4 ML BTL OD (08:00)
[2022-12-12] MEDS: Povidone-Iodine Ophth 30 ML BTL (08:00)
[2022-12-12] MEDS: Balanced Salt Soln.-PLUS 500 ML BAG OP (08:05)
[2022-12-12] MEDS: Duovisc Viscoelastic System EACH 1 EACH (08:05)
[2022-12-12] MEDS: Lidocaine 1% Pres-Free 5 ML VIAL (08:06)
[2022-12-12] MEDS: Phenylephrine/Lidocaine (15/10) MG/ML 1 ML VIAL (08:06)
[2022-12-12 08:25] VITALS: BP 146/91; PULSE 74; RESP 16; TEMP 36.5; O2SAT 95
--- NOTE | 2022-12-12 08:25 | W.PM.DSUDISC ---
Date of service: 12/12/22 Time of Service: 08:25 Discharge Plan Disposition Patient Disposition: Home Discharge Details Attending Provider: Aaron Ness Primary Care Provider: Shiv Aceves Home Meds and New Rx's Prescriptions: No Action sildenafil 50 mg tablet 50 mg PO DAILY PRN (Reason: sexual activity) Qty: 20 3RF Rx Instructions: administer 30 minutes to 4 hours before activity meloxicam 15 mg tablet 15 mg PO DAILY PRN (Reason: pain) 30 Days Qty: 30 5RF Rx Instructions: Take with food. Do not take with ibuprofen or naproxen. Motrin PM 1 EACH tablet 2 ea PO HS esomeprazole magnesium [Nexium] 40 mg capsule,delayed release(DR/EC) 40 mg PO DAILY Discharge Instructions Stand Alone Forms: Post-op Topical Cataract, Salvador Ganey (DSU) Discharge Orders Discharge Orders: Discharge Order (Routine); Ordered 12/12/22 Ordered By: Aaron Ness DS: Diagnosis Discharge Diagnosis (1) Posterior subcapsular age-related cataract, right eye: Status: Resolved (2) Cortical age-related cataract, right eye: Status: Resolved
--- NOTE | 2022-12-12 08:27 | ROE_ITS ---
Date of service: 12/12/22 Time of Service: 08:27 Operative Note Operative Note DATE OF PROCEDURE: 12/12/22 POST-OP DIAGNOSIS: same PROCEDURE: Cataract extraction using phacoemulsification with intraocular lens implant, right eye SURGEON: Aaron Ness ANESTHESIA TYPE: Local By Surgeon and MAC Refer to Anesthesia Record ESTIMATED BLOOD LOSS: 0 PATHOLOGY: none sent COMPLICATIONS: None Patient was transported to: same day Patient's condition: stable Implants: Dusty Clareon [id number] Indications: Progressive decreased vision due to cataract, right eye Procedure Description: CATARACT SURGERY OPERATIVE REPORT PREOPERATIVE DIAGNOSIS: Cortical/posterior subcapsular cataract, right eye POSTOPERATIVE DIAGNOSIS: Same OPERATION: Cataract extraction using phacoemulsification with posterior chamber intraocular lens implant, right eye. IOL: IOL Telecommunication Engineer/Model: Dusty Clareon [id number] IOL Power: +20.0] diopters IOL Serial Number: [id number] Optic Diameter: 6.0mm Haptic/Overall Diameter: 13.0mm PHACO INFO: Dusty Hybrid Logicurion Vision System with OZil and Active Fluidics Cumulative Dispersed Energy (CDE): 3.51 seconds SURGEON: Aaron Ness MD, RAYNE ANESTHESIA: Monitored Anesthesia Care (MAC), with local sub-tenon's anesthetic infiltration COMPLICATIONS: None SPECIMENS: None INDICATIONS FOR PROCEDURE: The patient is a 72-year-old male with history of diminished visual acuity in both eyes secondary to the development of symptomatic bilateral cataract. He is significantly symptomatic that he desires cataract surgery and attempt to improve and maximize his vision. The option of cataract surgery was offered to the patient and he wished to proceed. See office chart for detailed notes. PROCEDURE: The correct surgical eye was identified and marked as the right eye and the pupil was dilated in the preoperative area using mydriatics and cycloplegics. The dilated pupil size was 7.0 mm. The patient elected to proceed without oral sedation. The patient was brought to the operating room where cardiopulmonary monitoring was instituted and surgical time-out was performed, confirming the correct operative eye and IOL power. Topical anesthesia was administered and ophthalmic povidone-iodine 5% was instil led into the conjunctival fornices. The russ-ocular area was prepped with Betadine 10% solution and draped in the usual sterile fashion for intraocular surgery, including an aperture drape. A Tegaderm transparent film dressing was cut in half and used to cover the lashes and lid margins. Care was taken to sequester the lashes and lid margins under the Tegaderm dressing. A lid speculum was placed between the lids of the operative eye and the Beverly-Felipe operating microscope was maneuvered into position. Usman scissors were then used to make a conjunctival buttonhole approximately 6mm posterior to the limbus in the inferonasal quadrant. Blunt dissection was carried out to expose bare sclera, and a blunt-tipped sub-tenon?s anesthesia cannula was introduced and passed posteriorly along the globe where non- preserved plain lidocaine was injected into posterior sub-Tenon?s space. A sideport knife was used to make a paracentesis port. Intraocular phenylephrine/lidocaine was injected into the anterior chamber. The anterior chamber was then filled with viscoelastic. A keratome knife was used to construct a two--plane clear corneal tunnel extending 2.0mm into clear cornea. A flap was raised on the anterior capsule and capsulorhexis forceps were used to complete a continuous curvilinear capsulorhexis of 5.0 mm. Balanced salt solution was then used to perform cortical cleaving hydrodissection and nuclear hydrodelineation until the lens could be freely rotated within the capsular bag. The lens nucleus was then disassembled and removed within the capsular bag and iris plane using phacoemulsification. Residual cortical material was removed using the I/A handpiece. The posterior capsule was carefully polished to remove as much residual lens epithelial cells as safely possible. The capsular bag was then inflated and the anterior chamber deepened with cohesive viscoelastic. The lens implant described above was inserted into the capsular bag using the Dusty Autonome Injector. A Kuglen hook was used to dial the IOL into position. Residual viscoelastic was then removed first from posterior to the IOL, then from the anterior chamber using the I/A handpiece. The lens implant was noted to center nicely within the capsular bag. The incisions were stromally hydrated, and the anterior chamber was reformed using BSS. Then 0.5cc of moxifloxacin 1.0mg/ml were injected into the capsular bag and anterior chamber. The incisions were checked with a Weck spear and found to be secure. Several drops of ophthalmic povidone-iodine 5% were then applied to the eye followed by two drops of Imprimis combination prednisolone/moxifloxacin/nepafenac solution. The drapes were removed and a clear plastic protective eye shield was placed over the eye. The patient was then returned to [facility] in stable condition.
--- NOTE | 2022-12-12 08:33 | W.ANESPOSTOP ---
Postoperative Evaluation Date, Time and Location Date Performed: 12/12/22 Time Performed: 08:33 Patient Location: Day Surgery Unit Vital Signs Most Recent Imported Vital Signs: Most Recent Vital Signs Temp Pulse Resp BP Pulse Ox 36.2 C L 71 16 132/87 95 12/12/22 07:00 12/12/22 07:00 12/12/22 07:00 12/12/22 07:00 12/12/22 07:00 Pain Score Most Recent Pain Score: Most Recent Pain Score Pain Level 0 12/12/22 07:00 Assessment Mental Status: Awake (Alert & Oriented to Patient Baseline) Airway and Respiratory Function: Patent airway with normal (patient baseline) respiratory exam Cardiovascular Function: Hemodynamically Stable Hydration Status: Adequately Hydrated Nausea & Vomiting: No Nausea or Vomiting Pain: Pt. Denies Any Pain Peripheral Nerve Block: Patient did not receive a nerve block
== END 2022-12-12 08:40 | disposition home or self-care (01) ==
PROVIDERS: PCP Family Medicine; Visit Provider Ophthalmology
PROC: (CPT 66984; principal; 2022-12-12 08:15)
DX: H25.041 Posterior subcapsular polar age-related cataract, right eye (principal); H25.011 Cortical age-related cataract, right eye
CPT/HCPCS: 66984; V2632

== ENCOUNTER 2025-06-03 13:05 | Outpatient (REF) | payer MEDICARE, SELFPAY ==
[2025-06-03 15:41] LABS: HCT 48.9 % (40.0-50.0); HGB 16.6 g/dL (13.5-17.5); MCH 31.1 pg (27.0-33.0); MCHC 33.9 % (32.0-36.0); MCV 92 fL (80-95); MPV 9.9 fL (8.0-11.0); Platelet Count 195 10^3/uL (130-400); RBC 5.34 10^6/uL (4.36-5.78); RDW 12.6 % (11.8-14.1); RDW-SD 42.2 fL; WBC 4.72 10^3/uL (4.4-10.8)
[2025-06-03 16:15] LABS: Hemoglobin A1C 5.6 % (<5.7)
[2025-06-03 16:26] LABS: ALT 49 U/L (16-63); AST 26 U/L (15-37); Albumin 3.9 g/dL (3.4-5.0); Alkaline Phosphatase 89 U/L (46-116); Anion Gap 9.1 mmol/L (3-11); BUN 21 mg/dL (7-18); Bilirubin, Total 0.6 mg/dL (0.2-1.0); CO2 25.9 mmol/L (21.0-32.0); Calcium 9.2 mg/dL (8.5-10.1); Chloride 105 mmol/L (98-107); Cholesterol 284 mg/dL (<200); Glucose 122 mg/dL (74-106); HDL Cholesterol 59 mg/dL (>or=40); Potassium 4.2 mmol/L (3.5-5.1); Sodium 140 mmol/L (136-145); Total Protein 7.4 g/dL (6.4-8.2)
[2025-06-03 23:24] LABS: PSA, Screening 3.9 ng/mL (<=6.5)
[2025-06-04 11:39] LABS: Hepatitis C Ab w Rflx HCV PCR Negative (Negative)
== END 2025-06-03 13:06 | disposition home or self-care (01) ==
LOC: NCHCN 13:05
DX: Z13.1 Encounter for screening for diabetes mellitus (principal); Z13.6 Encounter for screening for cardiovascular disorders; Z12.5 Encounter for screening for malignant neoplasm of prostate
CPT/HCPCS: 80053; 80061; 84153; 85027; 86803; 83036